=== PATIENT | male | born 1945 | race Caucasian/White ===

== ENCOUNTER 2021-03-31 19:59 | Inpatient (IN) | payer OTHER ==
[~2021-03-31] VITALS: Ht 160 cm; Wt 62.1 kg
[~2021-03-31 19:59] MED LIST: ALBU0.212 IH; CITA-107 PO; FLUT1DIS6 IH; LISI1TAB13 PO; SIMV-43 PO; TIOT185 IH; [UNRECOGNIZED DRUG - CODE] PO
[2021-03-31] MEDS ORDERED: AZITHROMYCIN 500 MG/NS 250 ML IV ONE (20:15)
[2021-03-31] MEDS ORDERED: ALBUTEROL SULFATE 5 MG/ML 20 ML NEB SOLN [BULK] NEB ONE (20:15)
[2021-03-31] MEDS ORDERED: IPRATROPIUM BROMIDE 0.5 MG/2.5 ML NEB SOLUTION NEB ONE (20:15)
[2021-03-31] MEDS ORDERED: CefTRIAXone 1 GM/DEXTROSE 50 ML IV ONE (20:15)
[2021-03-31] MEDS ORDERED: LEVE500S9 PO (20:24)
[2021-03-31 21:07] LABS: BASOPHILS % (AUTO) 0.6 % (0.0-2.0); EOSINOPHILS % (AUTO) 3.6 % (1.0-6.0); HEMATOCRIT 43.8 % (41-53); HEMOGLOBIN 14.5 g/dL (13.5-17.5); LYMPHOCYTES # (AUTO) 2.3 K/uL (1.0-4.8); LYMPHOCYTES % (AUTO) 21.6 % (22.0-44.0); MEAN CORPUSCULAR VOLUME 91 fL (80-100); MONOCYTES # (AUTO) 1.2 K/uL (0.1-1.0); MONOCYTES % (AUTO) 10.7 % (2.0-9.0); NEUTROPHILS # (AUTO) 6.8 K/uL (1.8-7.7); NEUTROPHILS % (AUTO) 63.5 % (40.0-70.0); PLATELET COUNT (AUTO) 202 K/uL (150-450); RED BLOOD CELL COUNT(AUTO) 4.82 MIL/uL (4.50-5.90); RED CELL DISTRIBUTION WIDTH 15.2 % (11.5-14.5)
[2021-03-31 21:19] LABS: ANION GAP -2 mmol/L (8-16); CARBON DIOXIDE 40 mmol/L (22-29); CHLORIDE 103 mmol/L (98-107); CREATININE 0.79 mg/dL (0.60-1.30); GLUCOSE,RANDOM 113 mg/dL (70-110); POTASSIUM 3.8 mmol/L (3.5-5.1); SODIUM SERUM 141 mmol/L (136-145); UREA NITROGEN, BLOOD 21 mg/dL (7-18)
[2021-03-31 21:21] LABS: GLOMERULAR FILTR. RATE CALC > 60 mL/min (>60)
[2021-03-31 21:22] LABS: ALANINE AMINOTRANSFERASE 70 U/L (12-78); ALBUMIN 3.5 g/dL (3.4-5.0); ALKALINE PHOSPHATASE 97 U/L (46-116); ASPARTATE AMINOTRANSFERASE 43 U/L (15-37); B-TYPE NATRIURETIC PEPTIDE 74 pg/mL (0-100); BILIRUBIN,TOTAL 0.6 mg/dL (0.1-1.0); LIPASE 63 U/L (73-393)
[2021-03-31 21:24] LABS: LACTIC ACID 1.3 mmol/L (0.4-2.0)
[2021-03-31 21:26] LABS: COVID AG,FIA SOURCE NASOPHARYNGEAL
[2021-03-31 21:36] LABS: ABG BASE EXCESS 3.9 mmol/L (-2.0-3.0); ABG CARBOXYHEMOGLOBIN 1.8 % (0.0-1.5); ABG HCO3 26.1 mmol/L (22.0-26.0); ABG METHEMOGLOBIN 0.3 % (0.0-1.5); ABG OXYGEN CONTENT 18.7 mL/dL (15.0-23.0); ABG OXYGEN SATURATION 95.8 % (95.0-98.0); ABG OXYHEMOGLOBIN 93.8 % (94.0-100.0); ABG PCO2 69 mmHg (35-45); ABG PH 7.268 (7.35-7.450); ABG TOTAL HEMOGLOBIN 14.1 G/dL (12.0-18.0); PO2, ARTERIAL BG 87.7 mmHg (75.0-83.0); SOURCE, BLOOD GAS ARTERIAL
[2021-03-31 21:37] LABS: O2 DEVICE,BLOOD GAS BIPAP (ROOM AIR); SITE, BLOOD GAS RT BRACHIAL; SPONTANEOUS VT, BG 457 ml
[2021-03-31 21:50] LABS: INFLUENZA TYPE A NEGATIVE FOR TYPE A (NEGATIVE); INFLUENZA TYPE B NEGATIVE FOR TYPE B (NEGATIVE)
[2021-03-31] MEDS ORDERED: IPRATROPIUM BROMIDE 0.5 MG/2.5 ML NEB SOLUTION NEB PRN (22:00)
[2021-03-31] MEDS ORDERED: MethylPREDNISolone SOD SUCC 125 MG/2 ML VIAL IVP ONE (22:00)
[2021-03-31] MEDS ORDERED: CloNIDine HCL 0.1 MG TABLET PO PRN (22:15)
[2021-03-31] MEDS ORDERED: AmLODIPine BESYLATE 5 MG TABLET PO SCH (22:15)
[2021-03-31] MEDS ORDERED: BENZONATATE 100 MG CAPSULE PO PRN (22:15)
[2021-03-31] MEDS: MONTELUKAST SODIUM 10 MG TABLET PO SCH (22:15)
[2021-03-31] MEDS ORDERED: LevETIRAcetam 1,500 MG in DEXTROSE 5%-WATER 100 ML IV ONE (22:30)
[2021-03-31] MEDS: MethylPREDNISolone SOD SUCC 125 MG/2 ML VIAL IVP SCH (22:36)
[2021-03-31 23:05] LABS: THYROID STIMULATING HORMONE 3.56 uIU/mL (0.36-3.74)
[2021-03-31] MEDS: HEPARIN SODIUM,PORCINE 5,000 UNITS/ML VIAL SQ SCH (23:15)
[2021-04-01 01:06] LABS: APPEARANCE,URINE CLEAR (CLEAR); BILIRUBIN,URINE NEGATIVE (NEGATIVE); GLUCOSE, URINE (UA) NEGATIVE (NEGATIVE); KETONES,URINE NEGATIVE (NEGATIVE); LEUKOCYTE ESTERASE ,URINE NEGATIVE (NEGATIVE); NITRATE,URINE NEGATIVE (NEGATIVE); OCCULT BLOOD,URINE MODERATE (NEGATIVE); PROTEIN,URINE SEE CONFIRM (NEGATIVE); UROBILINOGEN,URINE 0.2 mg/dL (<=1.0)
[2021-04-01] MEDS: MethylPREDNISolone SOD SUCC 125 MG/2 ML VIAL IVP SCH ×3 (05:33→17:57)
[2021-04-01 06:58] LABS: BACTERIA,URINE Moderate /HPF (None Seen); RBC,URINE None Seen /HPF (0-2); SQUAMOUS EPITHELIAL CELL,UR Few /LPF (None Seen); SULFOSALICYLIC ACID,URINE 3+ (Negative); WBC,URINE 0-2 /HPF (0-5)
[2021-04-01] MEDS: HEPARIN SODIUM,PORCINE 5,000 UNITS/ML VIAL SQ SCH ×2 (07:54→16:00)
[2021-04-01] MEDS: ASPIRIN 81 MG CHEWABLE TABLET PO SCH ×2 (07:55→08:05)
[2021-04-01] MEDS: DOCUSATE SODIUM 100 MG CAPSULE PO SCH ×3 (07:55→21:46)
[2021-04-01] MEDS: FAMOTIDINE 20 MG TABLET PO SCH ×3 (07:55→21:46)
[2021-04-01] MEDS ORDERED: SODIUM CHLORIDE 0.9% 250 ML IV ONE (09:34)
[2021-04-01] MEDS: HydrALAZINE HCL 20 MG/ML VIAL IVP PRN (10:21)
[2021-04-01] MEDS: LevETIRAcetam 1,500 MG in DEXTROSE 5%-WATER 100 ML IV SCH ×2 (10:21→21:46)
[2021-04-01] MEDS: DEXMEDETOMIDINE HCL 400 MCG in SODIUM CHLORIDE 0.9% 96 ML IV PRN ×2 (10:22→18:25)
[2021-04-01] MEDS: AZITHROMYCIN 500 MG/NS 250 ML IV SCH (11:16)
[2021-04-01 11:39] LABS: ABG BASE EXCESS 6.2 mmol/L (-2.0-3.0); ABG CARBOXYHEMOGLOBIN 1.6 % (0.0-1.5); ABG HCO3 27.5 mmol/L (22.0-26.0); ABG METHEMOGLOBIN 0.3 % (0.0-1.5); ABG OXYGEN CONTENT 18.5 mL/dL (15.0-23.0); ABG OXYGEN SATURATION 94.8 % (95.0-98.0); ABG PH 7.249 (7.35-7.450); ABG TOTAL HEMOGLOBIN 14.1 G/dL (12.0-18.0); PO2, ARTERIAL BG 82.6 mmHg (75.0-83.0); SOURCE, BLOOD GAS ARTERIAL; TEMPERATURE, FAHRENHEIT, BG 98.6 FAHREN (96.0-98.6)
[2021-04-01 11:41] LABS: ABG PCO2 78 mmHg (35-45); SITE, BLOOD GAS LFT RADIAL
[2021-04-01 11:42] LABS: O2 DEVICE,BLOOD GAS BIPAP (ROOM AIR); SPONTANEOUS VT, BG 349 ml
[2021-04-01 11:43] LABS: INSPIRATORY TIME, BG 1 SEC
[2021-04-01 12:00] VITALS: BP 153/77
[2021-04-01 13:41] LABS: ABG BASE EXCESS 2.3 mmol/L (-2.0-3.0); ABG CARBOXYHEMOGLOBIN 1.9 % (0.0-1.5); ABG HCO3 24.4 mmol/L (22.0-26.0); ABG METHEMOGLOBIN 0.3 % (0.0-1.5); ABG OXYGEN CONTENT 17.2 mL/dL (15.0-23.0); ABG TOTAL HEMOGLOBIN 13.9 G/dL (12.0-18.0); SOURCE, BLOOD GAS ARTERIAL; TEMPERATURE, FAHRENHEIT, BG 98.6 FAHREN (96.0-98.6)
[2021-04-01 13:44] LABS: ABG PCO2 77 mmHg (35-45); O2 DEVICE,BLOOD GAS BIPAP (ROOM AIR); SITE, BLOOD GAS LFT BRACHIAL
[2021-04-01 13:45] LABS: SPONTANEOUS VT, BG 404 ml
[2021-04-01 13:46] LABS: INSPIRATORY TIME, BG 1 SEC
[2021-04-01 16:00] VITALS: BP 104/53
[2021-04-01 16:17] LABS: ABG BASE EXCESS 6.8 mmol/L (-2.0-3.0); ABG CARBOXYHEMOGLOBIN 2.2 % (0.0-1.5); ABG HCO3 27.9 mmol/L (22.0-26.0); ABG METHEMOGLOBIN 0.2 % (0.0-1.5); ABG OXYGEN SATURATION 92.8 % (95.0-98.0); ABG OXYHEMOGLOBIN 90.6 % (94.0-100.0); ABG PH 7.254 (7.35-7.450); ABG TOTAL HEMOGLOBIN 14.1 G/dL (12.0-18.0); PO2, ARTERIAL BG 68.6 mmHg (75.0-83.0); SOURCE, BLOOD GAS ARTERIAL; TEMPERATURE, FAHRENHEIT, BG 96.8 FAHREN (96.0-98.6)
[2021-04-01 16:18] LABS: ABG PCO2 78 mmHg (35-45); O2 DEVICE,BLOOD GAS BIPAP (ROOM AIR); SITE, BLOOD GAS RT BRACHIAL
[2021-04-01 16:19] LABS: SPONTANEOUS VT, BG 301 ml
[2021-04-01] MEDS ORDERED: IPRA3AMP24 NEB (17:21)
[2021-04-01] MEDS ORDERED: FLUT12AE7 IH (17:21)
[2021-04-01] MEDS ORDERED: TAMS-13 PO (17:21)
[2021-04-01] MEDS ORDERED: LEVO112T4 PO (17:21)
[2021-04-01] MEDS ORDERED: TIOT4MIS2 IH (17:24)
[2021-04-01] MEDS ORDERED: BISACODYL 10 MG RECTAL RECTAL SUPPOSITORY PR PRN (17:30)
[2021-04-01 20:00] VITALS: BP 148/82
[2021-04-01 20:12] LABS: ABG BASE EXCESS 8.2 mmol/L (-2.0-3.0); ABG HCO3 29.4 mmol/L (22.0-26.0); ABG METHEMOGLOBIN 0.2 % (0.0-1.5); ABG OXYGEN CONTENT 18.4 mL/dL (15.0-23.0); ABG OXYGEN SATURATION 94.6 % (95.0-98.0); ABG OXYHEMOGLOBIN 92.5 % (94.0-100.0); ABG TOTAL HEMOGLOBIN 14.1 G/dL (12.0-18.0); PO2, ARTERIAL BG 78.9 mmHg (75.0-83.0); SOURCE, BLOOD GAS ARTERIAL; TEMPERATURE, FAHRENHEIT, BG 98.6 FAHREN (96.0-98.6)
[2021-04-01 20:13] LABS: ABG PCO2 74 mmHg (35-45); O2 DEVICE,BLOOD GAS BIPAP (ROOM AIR); SITE, BLOOD GAS LFT RADIAL; SPONTANEOUS VT, BG 222 ml; VENT MODE, BG BIPAP (ROOM AIR)
[2021-04-01 20:14] LABS: I:E RATIO, BG 1 sec.
[2021-04-01] MEDS ORDERED: 0.9% SODIUM CHLORIDE 5 ML NEB SOLUTION NEB ONE (20:43)
[2021-04-01] MEDS: BUDESONIDE 0.5 MG/2 ML NEB SOLUTION NEB SCH (20:51)
[2021-04-01] MEDS: MONTELUKAST SODIUM 10 MG TABLET PO SCH ×2 (21:00→21:47)
[2021-04-01] MEDS: AmLODIPine BESYLATE 10 MG TABLET PO SCH (21:46)
[2021-04-01] MEDS: TIOTROPIUM BROMIDE 18 MCG/INH HANDIHALER [5] IH SCH (21:46)
[2021-04-02] VITALS: BP 99/54
[2021-04-02] MEDS: HEPARIN SODIUM,PORCINE 5,000 UNITS/ML VIAL SQ SCH ×3 (02:13→17:37)
[2021-04-02] MEDS: MethylPREDNISolone SOD SUCC 125 MG/2 ML VIAL IVP SCH ×4 (02:13→17:37)
[2021-04-02 04:00] VITALS: BP 168/86
[2021-04-02 05:42] LABS: EOSINOPHILS % (AUTO) 0 % (1.0-6.0); LYMPHOCYTES # (AUTO) 0.3 K/uL (1.0-4.8); LYMPHOCYTES % (AUTO) 2.7 % (22.0-44.0); MEAN CORPUSCULAR HEMOGLOBIN 29.8 pg (26.0-34.0); MEAN CORPUSCULAR HGB CONC 32.5 G/dL (31.0-37.0); MEAN CORPUSCULAR VOLUME 92 fL (80-100); MONOCYTES # (AUTO) 0.5 K/uL (0.1-1.0); MONOCYTES % (AUTO) 4.4 % (2.0-9.0); NEUTROPHILS # (AUTO) 10.9 K/uL (1.8-7.7); PLATELET COUNT (AUTO) 168 K/uL (150-450); RED BLOOD CELL COUNT(AUTO) 4.68 MIL/uL (4.50-5.90); RED CELL DISTRIBUTION WIDTH 15.3 % (11.5-14.5)
[2021-04-02 05:45] LABS: ANION GAP -1 mmol/L (8-16); CALCIUM, TOTAL 9.1 mg/dL (8.8-10.5); CHLORIDE 100 mmol/L (98-107); CREATININE 0.65 mg/dL (0.60-1.30); GLUCOSE,RANDOM 109 mg/dL (70-110); NEUTROPHILS % (AUTO) 92.9 % (40.0-70.0); POTASSIUM 4.5 mmol/L (3.5-5.1); SODIUM SERUM 140 mmol/L (136-145); UREA NITROGEN, BLOOD 30 mg/dL (7-18)
[2021-04-02] MEDS: LEVOTHYROXINE SODIUM 100 MCG TABLET PO SCH (06:23)
[2021-04-02 06:45] LABS: CARBON DIOXIDE 41 mmol/L (22-29); GLOMERULAR FILTR. RATE CALC > 60 mL/min (>60)
[2021-04-02 08:00] VITALS: BP 148/60
[2021-04-02] MEDS: BUDESONIDE 0.5 MG/2 ML NEB SOLUTION NEB SCH ×2 (08:05→20:32)
[2021-04-02] MEDS: LevETIRAcetam 1,500 MG in DEXTROSE 5%-WATER 100 ML IV SCH ×2 (08:34→20:31)
[2021-04-02] MEDS: DEXMEDETOMIDINE HCL 400 MCG in SODIUM CHLORIDE 0.9% 96 ML IV PRN (08:37)
[2021-04-02] MEDS: DOCUSATE SODIUM 100 MG CAPSULE PO SCH ×2 (09:00→20:32)
[2021-04-02] MEDS: TIOTROPIUM BROMIDE 18 MCG/INH HANDIHALER [5] IH SCH (09:00)
[2021-04-02] MEDS: ASPIRIN 81 MG CHEWABLE TABLET PO SCH (09:00)
[2021-04-02] MEDS: FAMOTIDINE 20 MG TABLET PO SCH ×2 (09:00→20:32)
[2021-04-02] MEDS: AZITHROMYCIN 500 MG/NS 250 ML IV SCH (10:46)
[2021-04-02 12:00] VITALS: BP 159/70
[2021-04-02] MEDS ORDERED: ETOMIDATE 2 MG/ML 10 ML VIAL ONE (15:33)
[2021-04-02] MEDS ORDERED: ROCURONIUM BROMIDE 10 MG/ML 5 ML VIAL ONE (15:35)
[2021-04-02] MEDS ORDERED: PROPOFOL 1000 MG/ISO-OSM 100 ML IV PRN (15:45)
[2021-04-02] MEDS ORDERED: ETOMIDATE 2 MG/ML 10 ML VIAL IVP ONE (15:45)
[2021-04-02] MEDS ORDERED: ROCURONIUM BROMIDE 10 MG/ML 5 ML VIAL IVP ONE (15:45)
[2021-04-02 16:00] VITALS: BP 173/76
[2021-04-02] MEDS: FentaNYL CIT 1000MCG/0.9% NACL 100 ML IV PRN (16:15)
[2021-04-02 17:11] LABS: ABG BASE EXCESS 11.4 mmol/L (-2.0-3.0); ABG CARBOXYHEMOGLOBIN 1.3 % (0.0-1.5); ABG HCO3 32.5 mmol/L (22.0-26.0); ABG METHEMOGLOBIN 0.3 % (0.0-1.5); ABG OXYGEN CONTENT 19.8 mL/dL (15.0-23.0); ABG OXYGEN SATURATION 99.6 % (95.0-98.0); ABG PCO2 70 mmHg (35-45); ABG PH 7.342 (7.35-7.450); ABG TOTAL HEMOGLOBIN 13.4 G/dL (12.0-18.0); PO2, ARTERIAL BG 475.3 mmHg (75.0-83.0); SITE, BLOOD GAS LFT RADIAL; SOURCE, BLOOD GAS ARTERIAL; TEMPERATURE, FAHRENHEIT, BG 96.7 FAHREN (96.0-98.6)
[2021-04-02 17:12] LABS: O2 DEVICE,BLOOD GAS VENTILATOR (ROOM AIR); PEEP,BG 5 cm H2O; SPONTANEOUS VT, BG 323 ml; VENT MODE, BG Press. Control Vent (ROOM AIR)
[2021-04-02 20:00] VITALS: BP 176/67
[2021-04-02] MEDS: MONTELUKAST SODIUM 10 MG TABLET PO SCH (20:32)
[2021-04-02] MEDS: AmLODIPine BESYLATE 10 MG TABLET PO SCH (20:32)
[2021-04-02] MEDS: ETHYL ALCOHOL 62% ANTISEPTIC NASAL INHALANT 0.6 ML AMPUL NASAL SCH (22:00)
[2021-04-03] VITALS (9 sets, daily range): BP systolic 73–166; BP diastolic 41–166
[2021-04-03] MEDS: MethylPREDNISolone SOD SUCC 125 MG/2 ML VIAL IVP SCH ×6 (00:17→23:10)
[2021-04-03] MEDS: HEPARIN SODIUM,PORCINE 5,000 UNITS/ML VIAL SQ SCH ×4 (00:18→23:11)
[2021-04-03] MEDS: LEVOTHYROXINE SODIUM 100 MCG TABLET PO SCH (06:01)
[2021-04-03] MEDS: TIOTROPIUM BROMIDE 18 MCG/INH HANDIHALER [5] IH SCH (09:00)
[2021-04-03] MEDS: DOCUSATE SODIUM 100 MG CAPSULE PO SCH (09:01)
[2021-04-03] MEDS: LevETIRAcetam 1,500 MG in DEXTROSE 5%-WATER 100 ML IV SCH ×2 (09:01→20:52)
[2021-04-03] MEDS: ASPIRIN 81 MG CHEWABLE TABLET PO SCH (09:02)
[2021-04-03] MEDS: FAMOTIDINE 20 MG TABLET PO SCH ×2 (09:02→20:50)
[2021-04-03] MEDS: ETHYL ALCOHOL 62% ANTISEPTIC NASAL INHALANT 0.6 ML AMPUL NASAL SCH ×2 (09:02→20:50)
[2021-04-03] MEDS: BUDESONIDE 0.5 MG/2 ML NEB SOLUTION NEB SCH ×2 (09:32→21:44)
[2021-04-03 10:01] LABS: ABG BASE EXCESS 9.2 mmol/L (-2.0-3.0); ABG CARBOXYHEMOGLOBIN 1.5 % (0.0-1.5); ABG HCO3 31.1 mmol/L (22.0-26.0); ABG METHEMOGLOBIN 0.3 % (0.0-1.5); ABG OXYGEN CONTENT 18.3 mL/dL (15.0-23.0); ABG OXYGEN SATURATION 96.7 % (95.0-98.0); ABG PCO2 60 mmHg (35-45); ABG PH 7.379 (7.35-7.450); ABG TOTAL HEMOGLOBIN 13.6 G/dL (12.0-18.0); O2 DEVICE,BLOOD GAS VENTILATOR (ROOM AIR); PEEP,BG 5 cm H2O; SITE, BLOOD GAS RT BRACHIAL; SOURCE, BLOOD GAS ARTERIAL; TEMPERATURE, FAHRENHEIT, BG 98.6 FAHREN (96.0-98.6); VENT MODE, BG Press. Control Vent (ROOM AIR)
[2021-04-03] MEDS: AZITHROMYCIN 500 MG/NS 250 ML IV SCH (10:34)
[2021-04-03] MEDS ORDERED: DOPamine 400MG/D5W[STANDARD] 250 ML IV PRN (13:45)
[2021-04-03] MEDS: SODIUM CHLORIDE 0.9% 1,000 ML IV SCH ×2 (13:50→13:56)
[2021-04-03 14:39] LABS: BASOPHILS % (AUTO) 0.2 % (0.0-2.0); EOSINOPHILS % (AUTO) 0 % (1.0-6.0); HEMATOCRIT 39.9 % (41-53); LYMPHOCYTES # (AUTO) 0.6 K/uL (1.0-4.8); LYMPHOCYTES % (AUTO) 5.3 % (22.0-44.0); MEAN CORPUSCULAR HEMOGLOBIN 29.3 pg (26.0-34.0); MEAN CORPUSCULAR HGB CONC 32.5 G/dL (31.0-37.0); MEAN CORPUSCULAR VOLUME 90 fL (80-100); MONOCYTES # (AUTO) 0.5 K/uL (0.1-1.0); MONOCYTES % (AUTO) 4.4 % (2.0-9.0); NEUTROPHILS # (AUTO) 11.1 K/uL (1.8-7.7); PLATELET COUNT (AUTO) 162 K/uL (150-450); RED BLOOD CELL COUNT(AUTO) 4.44 MIL/uL (4.50-5.90); RED CELL DISTRIBUTION WIDTH 14.9 % (11.5-14.5)
[2021-04-03 14:40] LABS: NEUTROPHILS % (AUTO) 90.1 % (40.0-70.0)
[2021-04-03 14:52] LABS: ANION GAP 2 mmol/L (8-16); CALCIUM, TOTAL 8.7 mg/dL (8.8-10.5); CARBON DIOXIDE 39 mmol/L (22-29); CHLORIDE 101 mmol/L (98-107); CREATININE 0.76 mg/dL (0.60-1.30); GLUCOSE,RANDOM 116 mg/dL (70-110); POTASSIUM 4.2 mmol/L (3.5-5.1); SODIUM SERUM 142 mmol/L (136-145); UREA NITROGEN, BLOOD 38 mg/dL (7-18)
[2021-04-03 14:53] LABS: GLOMERULAR FILTR. RATE CALC > 60 mL/min (>60)
[2021-04-03 14:58] LABS: ALANINE AMINOTRANSFERASE 36 U/L (12-78); ALBUMIN 2.8 g/dL (3.4-5.0); ALKALINE PHOSPHATASE 60 U/L (46-116); ASPARTATE AMINOTRANSFERASE 27 U/L (15-37); BILIRUBIN,TOTAL 0.4 mg/dL (0.1-1.0); PHOSPHORUS 1.8 mg/dL (2.5-4.9); TOTAL PROTEIN, SERUM 6.4 g/dL (6.4-8.2)
[2021-04-03] MEDS: DEXMEDETOMIDINE HCL 400 MCG in SODIUM CHLORIDE 0.9% 96 ML IV PRN (18:56)
[2021-04-03] MEDS: FentaNYL CIT 1000MCG/0.9% NACL 100 ML IV PRN (19:43)
[2021-04-03] MEDS: MONTELUKAST SODIUM 10 MG TABLET PO SCH (20:50)
[2021-04-03] MEDS: SENNA/DOCUSATE SODIUM 8.6-50 MG TABLET PO SCH (20:50)
[2021-04-03] MEDS: AmLODIPine BESYLATE 10 MG TABLET PO SCH (20:51)
[2021-04-04] VITALS (12 sets, daily range): BP systolic 103–163; BP diastolic 53–76
[2021-04-04] MEDS: DEXMEDETOMIDINE HCL 400 MCG in SODIUM CHLORIDE 0.9% 96 ML IV PRN ×2 (03:09→11:39)
[2021-04-04] MEDS ORDERED: ATROPINE SULFATE 0.1 MG/ML 10 ML SYRINGE IVP ONE ×3 (03:30→03:45)
[2021-04-04] MEDS: MethylPREDNISolone SOD SUCC 125 MG/2 ML VIAL IVP SCH ×3 (05:44→17:49)
[2021-04-04] MEDS: LEVOTHYROXINE SODIUM 100 MCG TABLET PO SCH (05:44)
[2021-04-04 06:04] LABS: BASOPHILS % (AUTO) 0.1 % (0.0-2.0); EOSINOPHILS % (AUTO) 0 % (1.0-6.0); HEMATOCRIT 40.6 % (41-53); HEMOGLOBIN 13.5 g/dL (13.5-17.5); LYMPHOCYTES # (AUTO) 0.5 K/uL (1.0-4.8); LYMPHOCYTES % (AUTO) 6.2 % (22.0-44.0); MEAN CORPUSCULAR HEMOGLOBIN 29.5 pg (26.0-34.0); MEAN CORPUSCULAR HGB CONC 33.3 G/dL (31.0-37.0); MEAN CORPUSCULAR VOLUME 89 fL (80-100); MONOCYTES # (AUTO) 0.4 K/uL (0.1-1.0); NEUTROPHILS # (AUTO) 7.4 K/uL (1.8-7.7); PLATELET COUNT (AUTO) 153 K/uL (150-450); RED BLOOD CELL COUNT(AUTO) 4.57 MIL/uL (4.50-5.90); RED CELL DISTRIBUTION WIDTH 15.5 % (11.5-14.5)
[2021-04-04 06:17] LABS: ALANINE AMINOTRANSFERASE 33 U/L (12-78); ALBUMIN 2.6 g/dL (3.4-5.0); ALKALINE PHOSPHATASE 57 U/L (46-116); ANION GAP 2 mmol/L (8-16); ASPARTATE AMINOTRANSFERASE 20 U/L (15-37); BILIRUBIN,TOTAL 0.4 mg/dL (0.1-1.0); CALCIUM, TOTAL 8.1 mg/dL (8.8-10.5); CARBON DIOXIDE 37 mmol/L (22-29); CHLORIDE 105 mmol/L (98-107); GLUCOSE,RANDOM 163 mg/dL (70-110); POTASSIUM 4.3 mmol/L (3.5-5.1); SODIUM SERUM 144 mmol/L (136-145); TOTAL PROTEIN, SERUM 6.4 g/dL (6.4-8.2); UREA NITROGEN, BLOOD 36 mg/dL (7-18)
[2021-04-04 06:39] LABS: GLOMERULAR FILTR. RATE CALC > 60 mL/min (>60)
[2021-04-04 06:53] LABS: NEUTROPHILS % (AUTO) 88.7 % (40.0-70.0)
[2021-04-04] MEDS: ASPIRIN 81 MG CHEWABLE TABLET PO SCH (08:52)
[2021-04-04] MEDS: SENNA/DOCUSATE SODIUM 8.6-50 MG TABLET PO SCH ×2 (08:52→20:54)
[2021-04-04] MEDS: HEPARIN SODIUM,PORCINE 5,000 UNITS/ML VIAL SQ SCH ×2 (08:52→16:19)
[2021-04-04] MEDS: ETHYL ALCOHOL 62% ANTISEPTIC NASAL INHALANT 0.6 ML AMPUL NASAL SCH ×2 (08:52→20:54)
[2021-04-04] MEDS: FAMOTIDINE 20 MG TABLET PO SCH ×2 (08:53→20:54)
[2021-04-04] MEDS: TIOTROPIUM BROMIDE 18 MCG/INH HANDIHALER [5] IH SCH (09:00)
[2021-04-04] MEDS: LevETIRAcetam 1,500 MG in DEXTROSE 5%-WATER 100 ML IV SCH ×2 (09:13→20:53)
[2021-04-04] MEDS: BUDESONIDE 0.5 MG/2 ML NEB SOLUTION NEB SCH ×2 (09:45→19:09)
[2021-04-04 10:21] LABS: ABG BASE EXCESS 7.7 mmol/L (-2.0-3.0); ABG CARBOXYHEMOGLOBIN 1.1 % (0.0-1.5); ABG HCO3 30.3 mmol/L (22.0-26.0); ABG METHEMOGLOBIN 0.3 % (0.0-1.5); ABG OXYGEN CONTENT 18.2 mL/dL (15.0-23.0); ABG OXYGEN SATURATION 98.5 % (95.0-98.0); ABG OXYHEMOGLOBIN 97.1 % (94.0-100.0); ABG PCO2 50 mmHg (35-45); ABG PH 7.425 (7.35-7.450); ABG TOTAL HEMOGLOBIN 13.2 G/dL (12.0-18.0); PO2, ARTERIAL BG 134.2 mmHg (75.0-83.0); SOURCE, BLOOD GAS ARTERIAL; TEMPERATURE, FAHRENHEIT, BG 97.7 FAHREN (96.0-98.6)
[2021-04-04 10:22] LABS: O2 DEVICE,BLOOD GAS VENTILATOR (ROOM AIR); SITE, BLOOD GAS LFT RADIAL; VENT MODE, BG Press. Control Vent (ROOM AIR)
[2021-04-04] MEDS: AZITHROMYCIN 500 MG/NS 250 ML IV SCH (10:22)
[2021-04-04 10:23] LABS: INSPIRATORY TIME, BG 0.9 SEC; PEEP,BG 5 cm H2O; SPONTANEOUS VT, BG 745 ml
[2021-04-04] MEDS: CefTRIAXone SODIUM 2 GM in DEXTROSE 5%-WATER 50 ML IV SCH (11:53)
[2021-04-04] MEDS: SODIUM CHLORIDE 0.9% 1,000 ML IV SCH (16:19)
[2021-04-04] MEDS: FentaNYL CIT 1000MCG/0.9% NACL 100 ML IV PRN (20:02)
[2021-04-04] MEDS: LORazepam 2 MG/ML VIAL IVP PRN (20:08)
[2021-04-04] MEDS: MONTELUKAST SODIUM 10 MG TABLET PO SCH (20:54)
[2021-04-04] MEDS: AmLODIPine BESYLATE 10 MG TABLET PO SCH (20:54)
[2021-04-05] VITALS (11 sets, daily range): BP systolic 107–160; BP diastolic 48–79
[2021-04-05] MEDS: MethylPREDNISolone SOD SUCC 125 MG/2 ML VIAL IVP SCH ×4 (00:21→18:03)
[2021-04-05] MEDS: HEPARIN SODIUM,PORCINE 5,000 UNITS/ML VIAL SQ SCH ×3 (00:22→16:40)
[2021-04-05] MEDS: LORazepam 2 MG/ML VIAL IVP PRN ×3 (01:27→20:00)
[2021-04-05 05:35] LABS: EOSINOPHILS % (AUTO) 0 % (1.0-6.0); HEMOGLOBIN 12.2 g/dL (13.5-17.5); LYMPHOCYTES # (AUTO) 0.9 K/uL (1.0-4.8); LYMPHOCYTES % (AUTO) 7.2 % (22.0-44.0); MEAN CORPUSCULAR HEMOGLOBIN 29.2 pg (26.0-34.0); MEAN CORPUSCULAR HGB CONC 32.9 G/dL (31.0-37.0); MEAN CORPUSCULAR VOLUME 89 fL (80-100); MONOCYTES # (AUTO) 0.6 K/uL (0.1-1.0); NEUTROPHILS # (AUTO) 10.5 K/uL (1.8-7.7); PLATELET COUNT (AUTO) 136 K/uL (150-450); RED BLOOD CELL COUNT(AUTO) 4.18 MIL/uL (4.50-5.90); RED CELL DISTRIBUTION WIDTH 15.3 % (11.5-14.5)
[2021-04-05 05:43] LABS: ALANINE AMINOTRANSFERASE 24 U/L (12-78); ALBUMIN 2.5 g/dL (3.4-5.0); ALKALINE PHOSPHATASE 56 U/L (46-116); ANION GAP 3 mmol/L (8-16); ASPARTATE AMINOTRANSFERASE 17 U/L (15-37); BILIRUBIN,TOTAL 0.2 mg/dL (0.1-1.0); CALCIUM, TOTAL 8.1 mg/dL (8.8-10.5); CARBON DIOXIDE 36 mmol/L (22-29); CHLORIDE 108 mmol/L (98-107); GLUCOSE,RANDOM 160 mg/dL (70-110); SODIUM SERUM 147 mmol/L (136-145); UREA NITROGEN, BLOOD 43 mg/dL (7-18)
[2021-04-05] MEDS: SODIUM CHLORIDE 0.9% 1,000 ML IV SCH ×2 (05:47→19:59)
[2021-04-05] MEDS: LEVOTHYROXINE SODIUM 100 MCG TABLET PO SCH (05:48)
[2021-04-05 06:09] LABS: NEUTROPHILS % (AUTO) 87.8 % (40.0-70.0)
[2021-04-05 06:16] LABS: GLOMERULAR FILTR. RATE CALC > 60 mL/min (>60)
[2021-04-05] MEDS: BUDESONIDE 0.5 MG/2 ML NEB SOLUTION NEB SCH ×2 (08:16→19:45)
[2021-04-05] MEDS: ETHYL ALCOHOL 62% ANTISEPTIC NASAL INHALANT 0.6 ML AMPUL NASAL SCH ×2 (08:34→20:00)
[2021-04-05] MEDS: LevETIRAcetam 1,500 MG in DEXTROSE 5%-WATER 100 ML IV SCH ×2 (08:34→21:03)
[2021-04-05] MEDS: FAMOTIDINE 20 MG TABLET PO SCH ×2 (08:35→20:00)
[2021-04-05] MEDS: TAMSULOSIN HCL 0.4 MG CAPSULE PO SCH (08:35)
[2021-04-05] MEDS: ASPIRIN 81 MG CHEWABLE TABLET PO SCH (08:35)
[2021-04-05] MEDS: TIOTROPIUM BROMIDE 18 MCG/INH HANDIHALER [5] IH SCH (09:00)
[2021-04-05] MEDS: SENNA/DOCUSATE SODIUM 8.6-50 MG TABLET PO SCH ×2 (09:24→20:00)
[2021-04-05] MEDS: FentaNYL CIT 1000MCG/0.9% NACL 100 ML IV PRN (09:30)
[2021-04-05 10:28] LABS: ABG BASE EXCESS 4.1 mmol/L (-2.0-3.0); ABG HCO3 26.9 mmol/L (22.0-26.0); ABG METHEMOGLOBIN 0.3 % (0.0-1.5); ABG OXYGEN CONTENT 17.5 mL/dL (15.0-23.0); ABG OXYGEN SATURATION 98.2 % (95.0-98.0); ABG OXYHEMOGLOBIN 96.9 % (94.0-100.0); ABG PCO2 61 mmHg (35-45); ABG PH 7.313 (7.35-7.450); ABG TOTAL HEMOGLOBIN 12.7 G/dL (12.0-18.0); PO2, ARTERIAL BG 129.4 mmHg (75.0-83.0); SOURCE, BLOOD GAS ARTERIAL; TEMPERATURE, FAHRENHEIT, BG 98.6 FAHREN (96.0-98.6)
[2021-04-05] MEDS: AZITHROMYCIN 500 MG/NS 250 ML IV SCH (10:29)
[2021-04-05 10:33] LABS: ABG A-A DIFF O2 49.1 mmHg (10-20.0); O2 DEVICE,BLOOD GAS VENTILATOR (ROOM AIR); PEEP,BG 5 cm H2O; SITE, BLOOD GAS LFT RADIAL; VENT MODE, BG Press. Control Vent (ROOM AIR); VT, ABG 300 ml
[2021-04-05 10:35] LABS: INSPIRATORY TIME, BG 0.8 SEC
[2021-04-05 12:06] LABS: PHOSPHORUS 2.3 mg/dL (2.5-4.9)
[2021-04-05] MEDS: CefTRIAXone SODIUM 2 GM in DEXTROSE 5%-WATER 50 ML IV SCH (12:15)
[2021-04-05] MEDS: ALBUTEROL SULFATE 2.5 MG/0.5 ML NEB SOLUTION NEB PRN ×2 (17:39→19:45)
[2021-04-05] MEDS: IPRATROPIUM BROMIDE 0.5 MG/2.5 ML NEB SOLUTION NEB PRN ×2 (17:39→19:45)
[2021-04-05] MEDS: AmLODIPine BESYLATE 10 MG TABLET PO SCH (20:00)
[2021-04-05] MEDS: MONTELUKAST SODIUM 10 MG TABLET PO SCH (20:00)
[2021-04-06] VITALS: BP 117/52
[2021-04-06] MEDS: HEPARIN SODIUM,PORCINE 5,000 UNITS/ML VIAL SQ SCH ×3 (01:12→15:16)
[2021-04-06] MEDS: MethylPREDNISolone SOD SUCC 125 MG/2 ML VIAL IVP SCH ×4 (01:12→18:51)
[2021-04-06] MEDS: LORazepam 2 MG/ML VIAL IVP PRN (01:48)
[2021-04-06 04:00] VITALS: BP 139/68
[2021-04-06] MEDS: LEVOTHYROXINE SODIUM 100 MCG TABLET PO SCH (06:19)
[2021-04-06 06:27] LABS: BASOPHILS % (AUTO) 0.1 % (0.0-2.0); EOSINOPHILS % (AUTO) 0 % (1.0-6.0); HEMATOCRIT 35.3 % (41-53); HEMOGLOBIN 11.7 g/dL (13.5-17.5); LYMPHOCYTES # (AUTO) 0.7 K/uL (1.0-4.8); LYMPHOCYTES % (AUTO) 6.1 % (22.0-44.0); MEAN CORPUSCULAR HEMOGLOBIN 29.5 pg (26.0-34.0); MEAN CORPUSCULAR HGB CONC 33.2 G/dL (31.0-37.0); MEAN CORPUSCULAR VOLUME 89 fL (80-100); MONOCYTES # (AUTO) 0.6 K/uL (0.1-1.0); MONOCYTES % (AUTO) 4.9 % (2.0-9.0); NEUTROPHILS # (AUTO) 10.5 K/uL (1.8-7.7); PLATELET COUNT (AUTO) 127 K/uL (150-450); RED BLOOD CELL COUNT(AUTO) 3.97 MIL/uL (4.50-5.90); RED CELL DISTRIBUTION WIDTH 15.5 % (11.5-14.5)
[2021-04-06 07:03] LABS: ALANINE AMINOTRANSFERASE 39 U/L (12-78); ALBUMIN 2.5 g/dL (3.4-5.0); ALKALINE PHOSPHATASE 60 U/L (46-116); ASPARTATE AMINOTRANSFERASE 25 U/L (15-37); BILIRUBIN,TOTAL 0.2 mg/dL (0.1-1.0); CALCIUM, TOTAL 8.2 mg/dL (8.8-10.5); CARBON DIOXIDE 36 mmol/L (22-29); CREATININE 0.65 mg/dL (0.60-1.30); GLUCOSE,RANDOM 231 mg/dL (70-110); POTASSIUM 3.9 mmol/L (3.5-5.1); SODIUM SERUM 146 mmol/L (136-145); TOTAL PROTEIN, SERUM 6.1 g/dL (6.4-8.2); UREA NITROGEN, BLOOD 29 mg/dL (7-18)
[2021-04-06 07:07] LABS: ANION GAP 1 mmol/L (8-16); CHLORIDE 109 mmol/L (98-107); GLOMERULAR FILTR. RATE CALC > 60 mL/min (>60)
[2021-04-06 07:20] LABS: NEUTROPHILS % (AUTO) 88.9 % (40.0-70.0)
[2021-04-06 08:00] VITALS: BP 155/71
[2021-04-06] MEDS: SODIUM CHLORIDE 0.9% 1,000 ML IV SCH ×2 (08:16→21:45)
[2021-04-06] MEDS: LevETIRAcetam 1,500 MG in DEXTROSE 5%-WATER 100 ML IV SCH ×2 (08:16→21:47)
[2021-04-06] MEDS: SENNA/DOCUSATE SODIUM 8.6-50 MG TABLET PO SCH ×2 (08:17→21:00)
[2021-04-06] MEDS: ETHYL ALCOHOL 62% ANTISEPTIC NASAL INHALANT 0.6 ML AMPUL NASAL SCH ×2 (08:17→21:47)
[2021-04-06] MEDS: FAMOTIDINE 20 MG TABLET PO SCH ×2 (08:17→21:00)
[2021-04-06] MEDS: ASPIRIN 81 MG CHEWABLE TABLET PO SCH (08:17)
[2021-04-06] MEDS: TIOTROPIUM BROMIDE 18 MCG/INH HANDIHALER [5] IH SCH (09:00)
[2021-04-06] MEDS: TAMSULOSIN HCL 0.4 MG CAPSULE PO SCH (09:00)
[2021-04-06] MEDS: BUDESONIDE 0.5 MG/2 ML NEB SOLUTION NEB SCH ×2 (09:19→20:18)
[2021-04-06] MEDS: AZITHROMYCIN 500 MG/NS 250 ML IV SCH (10:29)
[2021-04-06] MEDS: CefTRIAXone SODIUM 2 GM in DEXTROSE 5%-WATER 50 ML IV SCH (11:52)
[2021-04-06 11:59] LABS: ABG CARBOXYHEMOGLOBIN 1.1 % (0.0-1.5); ABG METHEMOGLOBIN 0.3 % (0.0-1.5); ABG OXYGEN SATURATION 97.7 % (95.0-98.0); ABG OXYHEMOGLOBIN 96.3 % (94.0-100.0); ABG PCO2 65 mmHg (35-45); ABG PH 7.336 (7.35-7.450); ABG TOTAL HEMOGLOBIN 12.4 G/dL (12.0-18.0); PO2, ARTERIAL BG 113.1 mmHg (75.0-83.0); SITE, BLOOD GAS LFT RADIAL; SOURCE, BLOOD GAS ARTERIAL; TEMPERATURE, FAHRENHEIT, BG 98.7 FAHREN (96.0-98.6)
[2021-04-06 12:00] VITALS: BP 150/67
[2021-04-06 12:00] LABS: O2 DEVICE,BLOOD GAS VENTILATOR (ROOM AIR); PEEP,BG 5 cm H2O; PRESSURE SUPPORT, BG 5 cm H2O; SPONTANEOUS VT, BG 362 ml; VENT MODE, BG Press. Support Vent. (ROOM AIR)
[2021-04-06] MEDS: HydrALAZINE HCL 20 MG/ML VIAL IVP PRN (15:17)
[2021-04-06 16:00] VITALS: BP 163/87
[2021-04-06 20:00] VITALS: BP 144/72
[2021-04-06] MEDS: AmLODIPine BESYLATE 10 MG TABLET PO SCH (21:00)
[2021-04-06] MEDS: MONTELUKAST SODIUM 10 MG TABLET PO SCH (21:00)
[2021-04-07] VITALS: BP 178/82
[2021-04-07] MEDS: HEPARIN SODIUM,PORCINE 5,000 UNITS/ML VIAL SQ SCH ×3 (00:01→17:33)
[2021-04-07] MEDS: MethylPREDNISolone SOD SUCC 125 MG/2 ML VIAL IVP SCH ×4 (00:01→17:33)
[2021-04-07] MEDS: HydrALAZINE HCL 20 MG/ML VIAL IVP PRN ×2 (00:02→21:16)
[2021-04-07 04:00] VITALS: BP 150/70
[2021-04-07 05:20] LABS: BASOPHILS % (AUTO) 0.2 % (0.0-2.0); EOSINOPHILS % (AUTO) 0 % (1.0-6.0); HEMOGLOBIN 12.1 g/dL (13.5-17.5); LYMPHOCYTES # (AUTO) 0.5 K/uL (1.0-4.8); LYMPHOCYTES % (AUTO) 3.7 % (22.0-44.0); MEAN CORPUSCULAR HEMOGLOBIN 29.8 pg (26.0-34.0); MEAN CORPUSCULAR HGB CONC 33.5 G/dL (31.0-37.0); MEAN CORPUSCULAR VOLUME 89 fL (80-100); MONOCYTES # (AUTO) 0.5 K/uL (0.1-1.0); NEUTROPHILS # (AUTO) 12.3 K/uL (1.8-7.7); PLATELET COUNT (AUTO) 121 K/uL (150-450); RED BLOOD CELL COUNT(AUTO) 4.05 MIL/uL (4.50-5.90); RED CELL DISTRIBUTION WIDTH 15.5 % (11.5-14.5)
[2021-04-07 05:21] LABS: NEUTROPHILS % (AUTO) 92.1 % (40.0-70.0)
[2021-04-07 05:57] LABS: ALANINE AMINOTRANSFERASE 118 U/L (12-78); ALBUMIN 2.5 g/dL (3.4-5.0); ALKALINE PHOSPHATASE 56 U/L (46-116); ANION GAP 1 mmol/L (8-16); ASPARTATE AMINOTRANSFERASE 72 U/L (15-37); BILIRUBIN,TOTAL 0.5 mg/dL (0.1-1.0); CALCIUM, TOTAL 8.4 mg/dL (8.8-10.5); CARBON DIOXIDE 39 mmol/L (22-29); CHLORIDE 107 mmol/L (98-107); CREATININE 0.61 mg/dL (0.60-1.30); GLUCOSE,RANDOM 147 mg/dL (70-110); POTASSIUM 4.1 mmol/L (3.5-5.1); SODIUM SERUM 147 mmol/L (136-145); UREA NITROGEN, BLOOD 22 mg/dL (7-18)
[2021-04-07 05:58] LABS: GLOMERULAR FILTR. RATE CALC > 60 mL/min (>60)
[2021-04-07] MEDS: LEVOTHYROXINE SODIUM 100 MCG TABLET PO SCH (06:30)
[2021-04-07] MEDS: ALBUTEROL SULFATE 2.5 MG/0.5 ML NEB SOLUTION NEB PRN ×2 (07:57→21:15)
[2021-04-07] MEDS: IPRATROPIUM BROMIDE 0.5 MG/2.5 ML NEB SOLUTION NEB PRN (07:57)
[2021-04-07] MEDS: BUDESONIDE 0.5 MG/2 ML NEB SOLUTION NEB SCH ×2 (07:58→21:15)
[2021-04-07 08:00] VITALS: BP 168/66
[2021-04-07] MEDS: SENNA/DOCUSATE SODIUM 8.6-50 MG TABLET PO SCH ×2 (08:29→21:00)
[2021-04-07] MEDS: ASPIRIN 81 MG CHEWABLE TABLET PO SCH (08:29)
[2021-04-07] MEDS: TAMSULOSIN HCL 0.4 MG CAPSULE PO SCH (08:29)
[2021-04-07] MEDS: FAMOTIDINE 20 MG TABLET PO SCH ×2 (08:29→21:00)
[2021-04-07] MEDS: TIOTROPIUM BROMIDE 18 MCG/INH HANDIHALER [5] IH SCH (08:30)
[2021-04-07] MEDS: LevETIRAcetam 1,500 MG in DEXTROSE 5%-WATER 100 ML IV SCH ×2 (08:34→21:09)
[2021-04-07] MEDS: ETHYL ALCOHOL 62% ANTISEPTIC NASAL INHALANT 0.6 ML AMPUL NASAL SCH ×2 (08:34→21:09)
[2021-04-07] MEDS: AZITHROMYCIN 500 MG/NS 250 ML IV SCH (09:35)
[2021-04-07] MEDS: CefTRIAXone SODIUM 2 GM in DEXTROSE 5%-WATER 50 ML IV SCH (11:29)
[2021-04-07 12:00] VITALS: BP 143/76
[2021-04-07 16:00] VITALS: BP 154/74
[2021-04-07 20:00] VITALS: BP 164/74
[2021-04-07] MEDS: AmLODIPine BESYLATE 10 MG TABLET PO SCH (21:00)
[2021-04-07] MEDS: MONTELUKAST SODIUM 10 MG TABLET PO SCH (21:00)
[2021-04-07] MEDS: ACETYLCYSTEINE 20% 200 MG/ML 4 ML NEB SOLUTION NEB SCH (21:08)
[2021-04-07] MEDS: LORazepam 2 MG/ML VIAL IVP PRN (23:00)
[2021-04-08] VITALS (12 sets, daily range): BP systolic 131–179; BP diastolic 46–84
[2021-04-08] MEDS: MethylPREDNISolone SOD SUCC 125 MG/2 ML VIAL IVP SCH ×3 (00:19→13:00)
[2021-04-08] MEDS: HEPARIN SODIUM,PORCINE 5,000 UNITS/ML VIAL SQ SCH ×3 (00:19→17:12)
[2021-04-08] MEDS: LEVOTHYROXINE SODIUM 100 MCG TABLET PO SCH (06:23)
[2021-04-08] MEDS: BUDESONIDE 0.5 MG/2 ML NEB SOLUTION NEB SCH ×2 (07:41→22:12)
[2021-04-08] MEDS: ALBUTEROL SULFATE 2.5 MG/0.5 ML NEB SOLUTION NEB PRN ×2 (07:41→20:55)
[2021-04-08] MEDS: ACETYLCYSTEINE 20% 200 MG/ML 4 ML NEB SOLUTION NEB SCH ×2 (07:42→22:12)
[2021-04-08 08:53] LABS: BASOPHILS % (AUTO) 0.1 % (0.0-2.0); EOSINOPHILS % (AUTO) 0 % (1.0-6.0); HEMATOCRIT 38.3 % (41-53); HEMOGLOBIN 12.6 g/dL (13.5-17.5); LYMPHOCYTES # (AUTO) 0.3 K/uL (1.0-4.8); LYMPHOCYTES % (AUTO) 2.2 % (22.0-44.0); MEAN CORPUSCULAR HEMOGLOBIN 29.1 pg (26.0-34.0); MEAN CORPUSCULAR HGB CONC 32.8 G/dL (31.0-37.0); MEAN CORPUSCULAR VOLUME 89 fL (80-100); MONOCYTES # (AUTO) 0.6 K/uL (0.1-1.0); MONOCYTES % (AUTO) 4.3 % (2.0-9.0); NEUTROPHILS # (AUTO) 12.1 K/uL (1.8-7.7); PLATELET COUNT (AUTO) 125 K/uL (150-450); RED BLOOD CELL COUNT(AUTO) 4.32 MIL/uL (4.50-5.90); RED CELL DISTRIBUTION WIDTH 15.9 % (11.5-14.5)
[2021-04-08 08:55] LABS: NEUTROPHILS % (AUTO) 93.4 % (40.0-70.0)
[2021-04-08] MEDS: ETHYL ALCOHOL 62% ANTISEPTIC NASAL INHALANT 0.6 ML AMPUL NASAL SCH ×2 (09:00→20:20)
[2021-04-08] MEDS: SENNA/DOCUSATE SODIUM 8.6-50 MG TABLET PO SCH ×2 (09:00→20:20)
[2021-04-08 09:07] LABS: ALANINE AMINOTRANSFERASE 233 U/L (12-78); ALBUMIN 2.6 g/dL (3.4-5.0); ALKALINE PHOSPHATASE 54 U/L (46-116); ANION GAP 2 mmol/L (8-16); ASPARTATE AMINOTRANSFERASE 124 U/L (15-37); BILIRUBIN,TOTAL 0.9 mg/dL (0.1-1.0); CALCIUM, TOTAL 8.3 mg/dL (8.8-10.5); CARBON DIOXIDE 40 mmol/L (22-29); CHLORIDE 106 mmol/L (98-107); CREATININE 0.56 mg/dL (0.60-1.30); GLUCOSE,RANDOM 149 mg/dL (70-110); POTASSIUM 3.8 mmol/L (3.5-5.1); SODIUM SERUM 148 mmol/L (136-145); TOTAL PROTEIN, SERUM 6.3 g/dL (6.4-8.2); UREA NITROGEN, BLOOD 28 mg/dL (7-18)
[2021-04-08 09:11] LABS: GLOMERULAR FILTR. RATE CALC > 60 mL/min (>60)
[2021-04-08] MEDS: TIOTROPIUM BROMIDE 18 MCG/INH HANDIHALER [5] IH SCH (10:01)
[2021-04-08] MEDS: LevETIRAcetam 1,500 MG in DEXTROSE 5%-WATER 100 ML IV SCH ×2 (10:02→20:31)
[2021-04-08] MEDS: LORazepam 2 MG/ML VIAL IVP PRN (10:02)
[2021-04-08] MEDS: AZITHROMYCIN 500 MG/NS 250 ML IV SCH (10:58)
[2021-04-08] MEDS: OxyCODONE HCL/ACETAMINOPHEN 5-325 MG TABLET PO PRN ×2 (10:59→20:21)
[2021-04-08] MEDS: TAMSULOSIN HCL 0.4 MG CAPSULE PO SCH (11:02)
[2021-04-08] MEDS: ASPIRIN 81 MG CHEWABLE TABLET PO SCH (11:02)
[2021-04-08] MEDS: FAMOTIDINE 20 MG TABLET PO SCH ×2 (11:02→20:20)
[2021-04-08] MEDS: CefTRIAXone SODIUM 2 GM in DEXTROSE 5%-WATER 50 ML IV SCH (13:02)
[2021-04-08] MEDS: MethylPREDNISolone SOD SUCC 40 MG/ML VIAL IVP SCH (17:12)
[2021-04-08] MEDS: AmLODIPine BESYLATE 10 MG TABLET PO SCH (20:20)
[2021-04-08] MEDS: IPRATROPIUM BROMIDE 0.5 MG/2.5 ML NEB SOLUTION NEB PRN (20:55)
[2021-04-08] MEDS: MONTELUKAST SODIUM 10 MG TABLET PO SCH (21:15)
[2021-04-09] VITALS: BP 149/72
[2021-04-09] MEDS: MethylPREDNISolone SOD SUCC 40 MG/ML VIAL IVP SCH ×4 (00:18→17:05)
[2021-04-09] MEDS: HEPARIN SODIUM,PORCINE 5,000 UNITS/ML VIAL SQ SCH ×3 (00:19→17:01)
[2021-04-09 04:00] VITALS: BP 152/76
[2021-04-09] MEDS: OxyCODONE HCL/ACETAMINOPHEN 5-325 MG TABLET PO PRN ×3 (04:01→20:31)
[2021-04-09 05:21] LABS: BASOPHILS % (AUTO) 0.1 % (0.0-2.0); EOSINOPHILS % (AUTO) 0 % (1.0-6.0); HEMATOCRIT 37.7 % (41-53); HEMOGLOBIN 12.5 g/dL (13.5-17.5); LYMPHOCYTES # (AUTO) 0.4 K/uL (1.0-4.8); LYMPHOCYTES % (AUTO) 3.2 % (22.0-44.0); MEAN CORPUSCULAR HEMOGLOBIN 29.3 pg (26.0-34.0); MEAN CORPUSCULAR HGB CONC 33.2 G/dL (31.0-37.0); MEAN CORPUSCULAR VOLUME 88 fL (80-100); MONOCYTES # (AUTO) 0.5 K/uL (0.1-1.0); MONOCYTES % (AUTO) 4.4 % (2.0-9.0); NEUTROPHILS # (AUTO) 11.3 K/uL (1.8-7.7); PLATELET COUNT (AUTO) 115 K/uL (150-450); RED BLOOD CELL COUNT(AUTO) 4.27 MIL/uL (4.50-5.90); RED CELL DISTRIBUTION WIDTH 15.8 % (11.5-14.5)
[2021-04-09 05:23] LABS: NEUTROPHILS % (AUTO) 92.3 % (40.0-70.0)
[2021-04-09 05:34] LABS: ALANINE AMINOTRANSFERASE 358 U/L (12-78); ALBUMIN 2.3 g/dL (3.4-5.0); ALKALINE PHOSPHATASE 68 U/L (46-116); ANION GAP -4 mmol/L (8-16); ASPARTATE AMINOTRANSFERASE 202 U/L (15-37); BILIRUBIN,TOTAL 0.9 mg/dL (0.1-1.0); CALCIUM, TOTAL 8.2 mg/dL (8.8-10.5); CARBON DIOXIDE 40 mmol/L (22-29); CHLORIDE 107 mmol/L (98-107); CREATININE 0.59 mg/dL (0.60-1.30); GLUCOSE,RANDOM 230 mg/dL (70-110); POTASSIUM 3.3 mmol/L (3.5-5.1); SODIUM SERUM 143 mmol/L (136-145); TOTAL PROTEIN, SERUM 5.7 g/dL (6.4-8.2); UREA NITROGEN, BLOOD 31 mg/dL (7-18)
[2021-04-09 05:35] LABS: GLOMERULAR FILTR. RATE CALC > 60 mL/min (>60)
[2021-04-09] MEDS: POTASSIUM CHL 10 MEQ/WATER 50 ML IV PRN ×3 (05:58→10:35)
[2021-04-09] MEDS ORDERED: POTASSIUM CHLORIDE 20 MEQ ER TABLET PO PRN (06:00)
[2021-04-09] MEDS ORDERED: POTASSIUM CHL 10 MEQ/WATER 50 ML IV PRN (06:00)
[2021-04-09] MEDS: LEVOTHYROXINE SODIUM 100 MCG TABLET PO SCH (06:30)
[2021-04-09] MEDS: LORazepam 2 MG/ML VIAL IVP PRN (06:53)
[2021-04-09 08:00] VITALS: BP 172/69
[2021-04-09] MEDS: ETHYL ALCOHOL 62% ANTISEPTIC NASAL INHALANT 0.6 ML AMPUL NASAL SCH ×2 (08:21→20:39)
[2021-04-09] MEDS: IPRATROPIUM BROMIDE 0.5 MG/2.5 ML NEB SOLUTION NEB PRN (08:21)
[2021-04-09] MEDS: BUDESONIDE 0.5 MG/2 ML NEB SOLUTION NEB SCH ×2 (08:21→21:30)
[2021-04-09] MEDS: ASPIRIN 81 MG CHEWABLE TABLET PO SCH (08:21)
[2021-04-09] MEDS: ALBUTEROL SULFATE 2.5 MG/0.5 ML NEB SOLUTION NEB PRN (08:21)
[2021-04-09] MEDS: ACETYLCYSTEINE 20% 200 MG/ML 4 ML NEB SOLUTION NEB SCH ×2 (08:22→21:00)
[2021-04-09] MEDS: TIOTROPIUM BROMIDE 18 MCG/INH HANDIHALER [5] IH SCH (08:33)
[2021-04-09] MEDS: TAMSULOSIN HCL 0.4 MG CAPSULE PO SCH (08:34)
[2021-04-09] MEDS: LevETIRAcetam 1,500 MG in DEXTROSE 5%-WATER 100 ML IV SCH ×2 (08:34→23:00)
[2021-04-09] MEDS: FAMOTIDINE 20 MG TABLET PO SCH ×2 (08:34→20:31)
[2021-04-09] MEDS: SENNA/DOCUSATE SODIUM 8.6-50 MG TABLET PO SCH ×2 (10:33→21:00)
[2021-04-09] MEDS: AZITHROMYCIN 500 MG/NS 250 ML IV SCH (10:37)
[2021-04-09 12:00] VITALS: BP 156/71
[2021-04-09] MEDS: CefTRIAXone SODIUM 2 GM in DEXTROSE 5%-WATER 50 ML IV SCH (12:57)
[2021-04-09 16:00] VITALS: BP 151/70
[2021-04-09] MEDS: MONTELUKAST SODIUM 10 MG TABLET PO SCH (20:30)
[2021-04-09] MEDS: AmLODIPine BESYLATE 10 MG TABLET PO SCH (20:30)
[2021-04-09] MEDS ORDERED: SODIUM CHLORIDE 0.9% 100 ML ONE (22:39)
[2021-04-10] MEDS: LORazepam 2 MG/ML VIAL IVP PRN (00:08)
[2021-04-10] MEDS: HEPARIN SODIUM,PORCINE 5,000 UNITS/ML VIAL SQ SCH ×4 (00:09→23:50)
[2021-04-10] MEDS: MethylPREDNISolone SOD SUCC 40 MG/ML VIAL IVP SCH ×5 (00:15→23:50)
[2021-04-10 00:33] VITALS: BP 141/67
[2021-04-10 04:41] VITALS: BP 158/62
[2021-04-10] MEDS: LEVOTHYROXINE SODIUM 100 MCG TABLET PO SCH (06:23)
[2021-04-10 06:50] LABS: BASOPHILS % (AUTO) 0.2 % (0.0-2.0); EOSINOPHILS % (AUTO) 0 % (1.0-6.0); HEMATOCRIT 36.6 % (41-53); HEMOGLOBIN 12.2 g/dL (13.5-17.5); LYMPHOCYTES # (AUTO) 0.6 K/uL (1.0-4.8); LYMPHOCYTES % (AUTO) 4.6 % (22.0-44.0); MEAN CORPUSCULAR HEMOGLOBIN 29.4 pg (26.0-34.0); MEAN CORPUSCULAR HGB CONC 33.4 G/dL (31.0-37.0); MEAN CORPUSCULAR VOLUME 88 fL (80-100); MONOCYTES # (AUTO) 0.7 K/uL (0.1-1.0); MONOCYTES % (AUTO) 5.4 % (2.0-9.0); NEUTROPHILS # (AUTO) 12.1 K/uL (1.8-7.7); PLATELET COUNT (AUTO) 113 K/uL (150-450); RED BLOOD CELL COUNT(AUTO) 4.16 MIL/uL (4.50-5.90); RED CELL DISTRIBUTION WIDTH 15.3 % (11.5-14.5)
[2021-04-10 06:59] LABS: NEUTROPHILS % (AUTO) 89.8 % (40.0-70.0)
[2021-04-10 07:15] LABS: ALANINE AMINOTRANSFERASE 517 U/L (12-78); ALBUMIN 2.2 g/dL (3.4-5.0); ALKALINE PHOSPHATASE 71 U/L (46-116); ANION GAP -3 mmol/L (8-16); ASPARTATE AMINOTRANSFERASE 200 U/L (15-37); CARBON DIOXIDE 39 mmol/L (22-29); CHLORIDE 104 mmol/L (98-107); GLUCOSE,RANDOM 155 mg/dL (70-110); POTASSIUM 4.4 mmol/L (3.5-5.1); SODIUM SERUM 140 mmol/L (136-145); TOTAL PROTEIN, SERUM 5.5 g/dL (6.4-8.2); UREA NITROGEN, BLOOD 24 mg/dL (7-18)
[2021-04-10 07:21] LABS: GLOMERULAR FILTR. RATE CALC > 60 mL/min (>60)
[2021-04-10] MEDS ORDERED: 0.9% SODIUM CHLORIDE 5 ML NEB SOLUTION NEB ONE (08:32)
[2021-04-10] MEDS: BUDESONIDE 0.5 MG/2 ML NEB SOLUTION NEB SCH ×2 (08:34→20:02)
[2021-04-10] MEDS: IPRATROPIUM BROMIDE 0.5 MG/2.5 ML NEB SOLUTION NEB PRN ×2 (08:45→20:02)
[2021-04-10] MEDS: ALBUTEROL SULFATE 2.5 MG/0.5 ML NEB SOLUTION NEB PRN ×2 (08:45→20:02)
[2021-04-10] MEDS: ACETYLCYSTEINE 20% 200 MG/ML 4 ML NEB SOLUTION NEB SCH ×3 (08:45→20:02)
[2021-04-10] MEDS: ETHYL ALCOHOL 62% ANTISEPTIC NASAL INHALANT 0.6 ML AMPUL NASAL SCH ×2 (09:14→21:14)
[2021-04-10] MEDS: FAMOTIDINE 20 MG TABLET PO SCH ×2 (09:14→21:13)
[2021-04-10] MEDS: ASPIRIN 81 MG CHEWABLE TABLET PO SCH (09:14)
[2021-04-10] MEDS: SENNA/DOCUSATE SODIUM 8.6-50 MG TABLET PO SCH ×2 (09:15→21:13)
[2021-04-10] MEDS: TAMSULOSIN HCL 0.4 MG CAPSULE PO SCH (09:16)
[2021-04-10 09:26] VITALS: BP 141/73
[2021-04-10] MEDS: LevETIRAcetam 1,500 MG in DEXTROSE 5%-WATER 100 ML IV SCH ×2 (09:41→21:15)
[2021-04-10] MEDS ORDERED: SODIUM CHLORIDE 0.9% 250 ML IV ONE (09:42)
[2021-04-10] MEDS: AZITHROMYCIN 500 MG/NS 250 ML IV SCH (11:35)
[2021-04-10] MEDS: TIOTROPIUM BROMIDE 18 MCG/INH HANDIHALER [5] IH SCH (11:40)
[2021-04-10] MEDS: OxyCODONE HCL/ACETAMINOPHEN 5-325 MG TABLET PO PRN (11:42)
[2021-04-10 12:33] VITALS: BP 148/63
[2021-04-10] MEDS: CefTRIAXone SODIUM 2 GM in DEXTROSE 5%-WATER 50 ML IV SCH (12:42)
[2021-04-10 16:12] VITALS: BP 137/77
[2021-04-10] MEDS: ACETAMINOPHEN 325 MG TABLET PO PRN (17:25)
[2021-04-10 19:54] VITALS: BP 167/79
[2021-04-10] MEDS: AmLODIPine BESYLATE 10 MG TABLET PO SCH (21:13)
[2021-04-10] MEDS: MONTELUKAST SODIUM 10 MG TABLET PO SCH (21:14)
[2021-04-10] MEDS: HydrALAZINE HCL 20 MG/ML VIAL IVP PRN (21:14)
[2021-04-11] VITALS (7 sets, daily range): BP systolic 126–152; BP diastolic 54–78
[2021-04-11] MEDS: LORazepam 2 MG/ML VIAL IVP PRN ×3 (00:28→22:39)
[2021-04-11] MEDS: LEVOTHYROXINE SODIUM 100 MCG TABLET PO SCH (06:09)
[2021-04-11] MEDS: MethylPREDNISolone SOD SUCC 40 MG/ML VIAL IVP SCH ×3 (06:09→17:59)
[2021-04-11] MEDS: HEPARIN SODIUM,PORCINE 5,000 UNITS/ML VIAL SQ SCH ×2 (08:27→17:59)
[2021-04-11] MEDS: FAMOTIDINE 20 MG TABLET PO SCH ×2 (08:27→22:37)
[2021-04-11] MEDS: TAMSULOSIN HCL 0.4 MG CAPSULE PO SCH (08:27)
[2021-04-11] MEDS: ASPIRIN 81 MG CHEWABLE TABLET PO SCH (08:27)
[2021-04-11] MEDS: SENNA/DOCUSATE SODIUM 8.6-50 MG TABLET PO SCH ×2 (08:27→22:37)
[2021-04-11] MEDS: TIOTROPIUM BROMIDE 18 MCG/INH HANDIHALER [5] IH SCH (08:27)
[2021-04-11] MEDS: LevETIRAcetam 1,500 MG in DEXTROSE 5%-WATER 100 ML IV SCH ×2 (08:28→22:37)
[2021-04-11] MEDS: ETHYL ALCOHOL 62% ANTISEPTIC NASAL INHALANT 0.6 ML AMPUL NASAL SCH ×2 (08:28→22:37)
[2021-04-11] MEDS: ALBUTEROL SULFATE 2.5 MG/0.5 ML NEB SOLUTION NEB PRN ×2 (09:32→20:04)
[2021-04-11] MEDS: ACETYLCYSTEINE 20% 200 MG/ML 4 ML NEB SOLUTION NEB SCH ×2 (09:32→20:06)
[2021-04-11] MEDS: BUDESONIDE 0.5 MG/2 ML NEB SOLUTION NEB SCH ×2 (09:55→20:04)
[2021-04-11] MEDS: ACETAMINOPHEN 325 MG TABLET PO PRN ×2 (12:27→22:37)
[2021-04-11] MEDS: AmLODIPine BESYLATE 10 MG TABLET PO SCH (22:37)
[2021-04-11] MEDS: MONTELUKAST SODIUM 10 MG TABLET PO SCH (22:39)
[2021-04-12] MEDS: MethylPREDNISolone SOD SUCC 40 MG/ML VIAL IVP SCH ×4 (00:14→20:40)
[2021-04-12 03:58] VITALS: BP 138/74
[2021-04-12] MEDS: LEVOTHYROXINE SODIUM 100 MCG TABLET PO SCH (06:34)
[2021-04-12 07:27] VITALS: BP 143/69
[2021-04-12] MEDS: HEPARIN SODIUM,PORCINE 5,000 UNITS/ML VIAL SQ SCH ×4 (08:00→23:22)
[2021-04-12] MEDS: ETHYL ALCOHOL 62% ANTISEPTIC NASAL INHALANT 0.6 ML AMPUL NASAL SCH ×2 (08:12→20:40)
[2021-04-12] MEDS: TIOTROPIUM BROMIDE 18 MCG/INH HANDIHALER [5] IH SCH (08:12)
[2021-04-12] MEDS: LevETIRAcetam 1,500 MG in DEXTROSE 5%-WATER 100 ML IV SCH ×2 (08:12→20:39)
[2021-04-12] MEDS: ASPIRIN 81 MG CHEWABLE TABLET PO SCH (08:13)
[2021-04-12] MEDS: TAMSULOSIN HCL 0.4 MG CAPSULE PO SCH (08:13)
[2021-04-12] MEDS: SENNA/DOCUSATE SODIUM 8.6-50 MG TABLET PO SCH ×2 (08:13→20:41)
[2021-04-12] MEDS: FAMOTIDINE 20 MG TABLET PO SCH ×2 (08:13→20:40)
[2021-04-12] MEDS: ACETAMINOPHEN 325 MG TABLET PO PRN (08:15)
[2021-04-12] MEDS: LORazepam 2 MG/ML VIAL IVP PRN ×3 (08:19→20:43)
[2021-04-12] MEDS: BUDESONIDE 0.5 MG/2 ML NEB SOLUTION NEB SCH ×2 (08:30→20:34)
[2021-04-12] MEDS: ACETYLCYSTEINE 20% 200 MG/ML 4 ML NEB SOLUTION NEB SCH ×2 (08:38→20:34)
[2021-04-12] MEDS: IPRATROPIUM BROMIDE 0.5 MG/2.5 ML NEB SOLUTION NEB PRN (08:38)
[2021-04-12] MEDS: ALBUTEROL SULFATE 2.5 MG/0.5 ML NEB SOLUTION NEB PRN ×2 (08:38→20:34)
[2021-04-12 11:49] VITALS: BP 133/56
[2021-04-12 19:29] VITALS: BP 144/72
[2021-04-12] MEDS: MONTELUKAST SODIUM 10 MG TABLET PO SCH (20:39)
[2021-04-12] MEDS: AmLODIPine BESYLATE 10 MG TABLET PO SCH (20:42)
[2021-04-13 00:32] VITALS: BP 132/57
[2021-04-13 04:29] VITALS: BP 145/69
[2021-04-13] MEDS: LORazepam 2 MG/ML VIAL IVP PRN ×2 (05:15→17:30)
[2021-04-13] MEDS: LEVOTHYROXINE SODIUM 100 MCG TABLET PO SCH (06:08)
[2021-04-13 06:49] LABS: BASOPHILS % (AUTO) 0.1 % (0.0-2.0); EOSINOPHILS % (AUTO) 0 % (1.0-6.0); HEMATOCRIT 34.1 % (41-53); HEMOGLOBIN 11.2 g/dL (13.5-17.5); LYMPHOCYTES # (AUTO) 0.4 K/uL (1.0-4.8); LYMPHOCYTES % (AUTO) 2.5 % (22.0-44.0); MEAN CORPUSCULAR HEMOGLOBIN 28.9 pg (26.0-34.0); MEAN CORPUSCULAR HGB CONC 32.9 G/dL (31.0-37.0); MEAN CORPUSCULAR VOLUME 88 fL (80-100); MONOCYTES # (AUTO) 0.7 K/uL (0.1-1.0); MONOCYTES % (AUTO) 4.7 % (2.0-9.0); NEUTROPHILS # (AUTO) 14.4 K/uL (1.8-7.7); PLATELET COUNT (AUTO) 122 K/uL (150-450); RED BLOOD CELL COUNT(AUTO) 3.87 MIL/uL (4.50-5.90); RED CELL DISTRIBUTION WIDTH 15.2 % (11.5-14.5)
[2021-04-13 06:58] LABS: NEUTROPHILS % (AUTO) 92.7 % (40.0-70.0)
[2021-04-13 07:03] LABS: ALANINE AMINOTRANSFERASE 224 U/L (12-78); ALKALINE PHOSPHATASE 166 U/L (46-116); ANION GAP -3 mmol/L (8-16); ASPARTATE AMINOTRANSFERASE 38 U/L (15-37); BILIRUBIN,TOTAL 0.4 mg/dL (0.1-1.0); CALCIUM, TOTAL 8.1 mg/dL (8.8-10.5); CARBON DIOXIDE 38 mmol/L (22-29); CHLORIDE 97 mmol/L (98-107); CREATININE 0.51 mg/dL (0.60-1.30); GLUCOSE,RANDOM 192 mg/dL (70-110); POTASSIUM 4.2 mmol/L (3.5-5.1); SODIUM SERUM 132 mmol/L (136-145); TOTAL PROTEIN, SERUM 4.7 g/dL (6.4-8.2); UREA NITROGEN, BLOOD 24 mg/dL (7-18)
[2021-04-13 07:10] LABS: GLOMERULAR FILTR. RATE CALC > 60 mL/min (>60)
[2021-04-13 07:40] VITALS: BP 143/64
[2021-04-13] MEDS: TIOTROPIUM BROMIDE 18 MCG/INH HANDIHALER [5] IH SCH ×2 (09:00→09:03)
[2021-04-13] MEDS: LevETIRAcetam 1,500 MG in DEXTROSE 5%-WATER 100 ML IV SCH ×2 (09:03→20:33)
[2021-04-13] MEDS: ASPIRIN 81 MG CHEWABLE TABLET PO SCH (09:04)
[2021-04-13] MEDS: SENNA/DOCUSATE SODIUM 8.6-50 MG TABLET PO SCH ×2 (09:04→20:33)
[2021-04-13] MEDS: ETHYL ALCOHOL 62% ANTISEPTIC NASAL INHALANT 0.6 ML AMPUL NASAL SCH ×2 (09:04→20:33)
[2021-04-13] MEDS: MethylPREDNISolone SOD SUCC 40 MG/ML VIAL IVP SCH ×2 (09:04→20:33)
[2021-04-13] MEDS: FAMOTIDINE 20 MG TABLET PO SCH ×2 (09:04→20:33)
[2021-04-13] MEDS: TAMSULOSIN HCL 0.4 MG CAPSULE PO SCH (09:04)
[2021-04-13] MEDS: HEPARIN SODIUM,PORCINE 5,000 UNITS/ML VIAL SQ SCH ×3 (09:05→23:58)
[2021-04-13] MEDS: ACETYLCYSTEINE 20% 200 MG/ML 4 ML NEB SOLUTION NEB SCH ×2 (09:09→20:56)
[2021-04-13] MEDS: BUDESONIDE 0.5 MG/2 ML NEB SOLUTION NEB SCH ×2 (09:09→20:45)
[2021-04-13 11:16] VITALS: BP 146/68
[2021-04-13] MEDS: ACETAMINOPHEN 325 MG TABLET PO PRN (14:17)
[2021-04-13 16:05] VITALS: BP 144/59
[2021-04-13 20:15] VITALS: BP 158/64
[2021-04-13] MEDS: MONTELUKAST SODIUM 10 MG TABLET PO SCH (20:33)
[2021-04-13] MEDS: AmLODIPine BESYLATE 10 MG TABLET PO SCH (20:34)
[2021-04-13] MEDS: ALBUTEROL SULFATE 2.5 MG/0.5 ML NEB SOLUTION NEB PRN (20:56)
[2021-04-14 00:03] VITALS: BP 124/50
[2021-04-14 04:34] VITALS: BP 144/73
[2021-04-14] MEDS: LEVOTHYROXINE SODIUM 100 MCG TABLET PO SCH (06:32)
[2021-04-14] MEDS: ACETAMINOPHEN 325 MG TABLET PO PRN (07:01)
[2021-04-14 07:41] VITALS: BP 141/62
[2021-04-14] MEDS: ETHYL ALCOHOL 62% ANTISEPTIC NASAL INHALANT 0.6 ML AMPUL NASAL SCH ×2 (08:18→20:53)
[2021-04-14] MEDS: ASPIRIN 81 MG CHEWABLE TABLET PO SCH (08:18)
[2021-04-14] MEDS: SENNA/DOCUSATE SODIUM 8.6-50 MG TABLET PO SCH ×2 (08:18→20:53)
[2021-04-14] MEDS: MethylPREDNISolone SOD SUCC 40 MG/ML VIAL IVP SCH ×2 (08:18→20:53)
[2021-04-14] MEDS: LevETIRAcetam 1,500 MG in DEXTROSE 5%-WATER 100 ML IV SCH ×2 (08:18→20:53)
[2021-04-14] MEDS: FAMOTIDINE 20 MG TABLET PO SCH ×2 (08:19→20:53)
[2021-04-14] MEDS: LORazepam 2 MG/ML VIAL IVP PRN ×2 (08:19→17:54)
[2021-04-14] MEDS: TAMSULOSIN HCL 0.4 MG CAPSULE PO SCH (08:19)
[2021-04-14] MEDS: HEPARIN SODIUM,PORCINE 5,000 UNITS/ML VIAL SQ SCH ×4 (08:20→23:09)
[2021-04-14] MEDS: ACETYLCYSTEINE 20% 200 MG/ML 4 ML NEB SOLUTION NEB SCH ×2 (08:31→22:13)
[2021-04-14] MEDS: BUDESONIDE 0.5 MG/2 ML NEB SOLUTION NEB SCH ×2 (08:31→21:40)
[2021-04-14] MEDS: TIOTROPIUM BROMIDE 18 MCG/INH HANDIHALER [5] IH SCH (08:50)
[2021-04-14 11:31] VITALS: BP 143/76
[2021-04-14] MEDS: FUROSEMIDE 20 MG/2 ML VIAL IVP SCH (12:23)
[2021-04-14 15:37] VITALS: BP 150/66
[2021-04-14 20:38] VITALS: BP 146/55
[2021-04-14] MEDS: MONTELUKAST SODIUM 10 MG TABLET PO SCH (20:53)
[2021-04-14] MEDS: AmLODIPine BESYLATE 10 MG TABLET PO SCH (20:54)
[2021-04-14] MEDS: ALBUTEROL SULFATE 2.5 MG/0.5 ML NEB SOLUTION NEB PRN (21:40)
[2021-04-15] VITALS (7 sets, daily range): BP systolic 106–147; BP diastolic 45–68
[2021-04-15] MEDS: LORazepam 2 MG/ML VIAL IVP PRN ×3 (02:26→18:02)
[2021-04-15] MEDS: LEVOTHYROXINE SODIUM 100 MCG TABLET PO SCH (05:42)
[2021-04-15 06:47] LABS: EOSINOPHILS % (AUTO) 0 % (1.0-6.0); HEMOGLOBIN 11.8 g/dL (13.5-17.5); LYMPHOCYTES # (AUTO) 0.7 K/uL (1.0-4.8); LYMPHOCYTES % (AUTO) 4.4 % (22.0-44.0); MEAN CORPUSCULAR HEMOGLOBIN 28.7 pg (26.0-34.0); MEAN CORPUSCULAR HGB CONC 32.7 G/dL (31.0-37.0); MEAN CORPUSCULAR VOLUME 88 fL (80-100); MONOCYTES # (AUTO) 0.6 K/uL (0.1-1.0); MONOCYTES % (AUTO) 4.1 % (2.0-9.0); NEUTROPHILS # (AUTO) 13.9 K/uL (1.8-7.7); PLATELET COUNT (AUTO) 146 K/uL (150-450); RED CELL DISTRIBUTION WIDTH 15.3 % (11.5-14.5)
[2021-04-15 06:52] LABS: NEUTROPHILS % (AUTO) 91.5 % (40.0-70.0)
[2021-04-15 06:57] LABS: CALCIUM, TOTAL 8.5 mg/dL (8.8-10.5); CREATININE 0.44 mg/dL (0.60-1.30); GLUCOSE,RANDOM 157 mg/dL (70-110); UREA NITROGEN, BLOOD 20 mg/dL (7-18)
[2021-04-15 07:05] LABS: ANION GAP -4 mmol/L (8-16); CHLORIDE 101 mmol/L (98-107); POTASSIUM 4.6 mmol/L (3.5-5.1); SODIUM SERUM 140 mmol/L (136-145)
[2021-04-15 07:09] LABS: GLOMERULAR FILTR. RATE CALC > 60 mL/min (>60)
[2021-04-15 07:12] LABS: CARBON DIOXIDE 43 mmol/L (22-29)
[2021-04-15] MEDS: BUDESONIDE 0.5 MG/2 ML NEB SOLUTION NEB SCH ×2 (08:15→20:25)
[2021-04-15] MEDS: ACETYLCYSTEINE 20% 200 MG/ML 4 ML NEB SOLUTION NEB SCH ×2 (08:15→20:25)
[2021-04-15] MEDS: IPRATROPIUM BROMIDE 0.5 MG/2.5 ML NEB SOLUTION NEB PRN (08:15)
[2021-04-15] MEDS: ALBUTEROL SULFATE 2.5 MG/0.5 ML NEB SOLUTION NEB PRN (08:15)
[2021-04-15] MEDS: HEPARIN SODIUM,PORCINE 5,000 UNITS/ML VIAL SQ SCH ×2 (08:27→16:43)
[2021-04-15] MEDS: FUROSEMIDE 20 MG/2 ML VIAL IVP SCH (08:29)
[2021-04-15] MEDS: MethylPREDNISolone SOD SUCC 40 MG/ML VIAL IVP SCH ×2 (08:30→21:49)
[2021-04-15] MEDS: TAMSULOSIN HCL 0.4 MG CAPSULE PO SCH (08:31)
[2021-04-15] MEDS: ASPIRIN 81 MG CHEWABLE TABLET PO SCH (08:31)
[2021-04-15] MEDS: FAMOTIDINE 20 MG TABLET PO SCH ×2 (08:32→21:48)
[2021-04-15] MEDS: SENNA/DOCUSATE SODIUM 8.6-50 MG TABLET PO SCH ×2 (08:32→21:51)
[2021-04-15] MEDS: ETHYL ALCOHOL 62% ANTISEPTIC NASAL INHALANT 0.6 ML AMPUL NASAL SCH (08:36)
[2021-04-15] MEDS: TIOTROPIUM BROMIDE 18 MCG/INH HANDIHALER [5] IH SCH (09:00)
[2021-04-15] MEDS: LevETIRAcetam 1,500 MG in DEXTROSE 5%-WATER 100 ML IV SCH ×2 (09:55→21:49)
[2021-04-15] MEDS ORDERED: SODIUM CHLORIDE 0.9% 500 ML IV ONE (10:05)
[2021-04-15] MEDS: ACETAMINOPHEN 325 MG TABLET PO PRN ×2 (12:45→23:07)
[2021-04-15] MEDS ORDERED: DEXTROSE 50%-WATER 25 GM/50 ML SYRINGE IVP PRN (14:15)
[2021-04-15] MEDS: INSULIN REGULAR, HUMAN 100 UNITS/ML SQ PRN (17:54)
[2021-04-15] MEDS: MONTELUKAST SODIUM 10 MG TABLET PO SCH (21:48)
[2021-04-15] MEDS: AmLODIPine BESYLATE 10 MG TABLET PO SCH (21:48)
[2021-04-16] MEDS: HEPARIN SODIUM,PORCINE 5,000 UNITS/ML VIAL SQ SCH ×3 (00:43→17:37)
[2021-04-16] MEDS: LORazepam 2 MG/ML VIAL IVP PRN ×4 (00:44→17:38)
[2021-04-16 03:57] VITALS: BP 138/58
[2021-04-16] MEDS: LEVOTHYROXINE SODIUM 100 MCG TABLET PO SCH (06:18)
[2021-04-16] MEDS: ACETAMINOPHEN 325 MG TABLET PO PRN (06:18)
[2021-04-16] MEDS: INSULIN REGULAR, HUMAN 100 UNITS/ML SQ PRN ×3 (06:29→17:58)
[2021-04-16 07:58] VITALS: BP 141/53
[2021-04-16] MEDS: LevETIRAcetam 1,500 MG in DEXTROSE 5%-WATER 100 ML IV SCH ×2 (08:26→21:20)
[2021-04-16] MEDS: TAMSULOSIN HCL 0.4 MG CAPSULE PO SCH (08:28)
[2021-04-16] MEDS: FAMOTIDINE 20 MG TABLET PO SCH ×2 (08:28→21:20)
[2021-04-16] MEDS: ASPIRIN 81 MG CHEWABLE TABLET PO SCH (08:28)
[2021-04-16] MEDS: FUROSEMIDE 20 MG/2 ML VIAL IVP SCH (08:28)
[2021-04-16] MEDS: SENNA/DOCUSATE SODIUM 8.6-50 MG TABLET PO SCH ×2 (08:29→21:20)
[2021-04-16] MEDS: MethylPREDNISolone SOD SUCC 40 MG/ML VIAL IVP SCH ×2 (08:29→21:20)
[2021-04-16] MEDS: TIOTROPIUM BROMIDE 18 MCG/INH HANDIHALER [5] IH SCH (08:32)
[2021-04-16] MEDS: BUDESONIDE 0.5 MG/2 ML NEB SOLUTION NEB SCH ×2 (09:25→19:13)
[2021-04-16 11:15] VITALS: BP 122/54
[2021-04-16 15:37] VITALS: BP 121/48
[2021-04-16] MEDS: IPRATROPIUM BROMIDE 0.5 MG/2.5 ML NEB SOLUTION NEB PRN (19:11)
[2021-04-16] MEDS: ALBUTEROL SULFATE 2.5 MG/0.5 ML NEB SOLUTION NEB PRN (19:11)
[2021-04-16 20:04] VITALS: BP 133/58
[2021-04-16] MEDS: MONTELUKAST SODIUM 10 MG TABLET PO SCH (21:20)
[2021-04-16] MEDS: AmLODIPine BESYLATE 10 MG TABLET PO SCH (21:20)
[2021-04-17] MEDS: HEPARIN SODIUM,PORCINE 5,000 UNITS/ML VIAL SQ SCH ×3 (00:02→15:45)
[2021-04-17 00:17] VITALS: BP 128/56
[2021-04-17] MEDS: ACETAMINOPHEN 325 MG TABLET PO PRN (01:43)
[2021-04-17] MEDS: LORazepam 2 MG/ML VIAL IVP PRN ×4 (02:14→22:51)
[2021-04-17 04:18] VITALS: BP 109/58
[2021-04-17] MEDS: LEVOTHYROXINE SODIUM 100 MCG TABLET PO SCH (06:14)
[2021-04-17] MEDS: INSULIN REGULAR, HUMAN 100 UNITS/ML SQ PRN ×3 (06:15→17:46)
[2021-04-17 07:18] VITALS: BP 124/52
[2021-04-17] MEDS: BUDESONIDE 0.5 MG/2 ML NEB SOLUTION NEB SCH ×2 (08:31→20:35)
[2021-04-17] MEDS: SENNA/DOCUSATE SODIUM 8.6-50 MG TABLET PO SCH ×2 (09:24→21:00)
[2021-04-17] MEDS: FAMOTIDINE 20 MG TABLET PO SCH ×2 (09:25→21:00)
[2021-04-17] MEDS: TAMSULOSIN HCL 0.4 MG CAPSULE PO SCH (09:25)
[2021-04-17] MEDS: MethylPREDNISolone SOD SUCC 40 MG/ML VIAL IVP SCH ×2 (09:25→20:27)
[2021-04-17] MEDS: ASPIRIN 81 MG CHEWABLE TABLET PO SCH (09:25)
[2021-04-17] MEDS: TIOTROPIUM BROMIDE 18 MCG/INH HANDIHALER [5] IH SCH (09:26)
[2021-04-17] MEDS: LevETIRAcetam 1,500 MG in DEXTROSE 5%-WATER 100 ML IV SCH ×2 (09:29→20:28)
[2021-04-17] MEDS: FUROSEMIDE 20 MG/2 ML VIAL IVP SCH (09:29)
[2021-04-17 11:36] VITALS: BP 131/60
[2021-04-17] MEDS: ALBUTEROL SULFATE 2.5 MG/0.5 ML NEB SOLUTION NEB PRN ×2 (15:03→20:35)
[2021-04-17] MEDS: IPRATROPIUM BROMIDE 0.5 MG/2.5 ML NEB SOLUTION NEB PRN (15:04)
[2021-04-17 16:50] VITALS: BP 129/56
[2021-04-17 20:07] VITALS: BP_SYST 121; BP_SYST 150; BP_DIAS 58; BP_DIAS 88
[2021-04-17] MEDS: MONTELUKAST SODIUM 10 MG TABLET PO SCH (21:00)
[2021-04-17] MEDS: AmLODIPine BESYLATE 10 MG TABLET PO SCH (21:00)
[2021-04-18] VITALS (7 sets, daily range): BP systolic 115–153; BP diastolic 53–74
[2021-04-18] MEDS: HEPARIN SODIUM,PORCINE 5,000 UNITS/ML VIAL SQ SCH ×4 (01:13→23:25)
[2021-04-18] MEDS: LEVOTHYROXINE SODIUM 100 MCG TABLET PO SCH (05:46)
[2021-04-18] MEDS: BUDESONIDE 0.5 MG/2 ML NEB SOLUTION NEB SCH ×2 (07:49→19:40)
[2021-04-18] MEDS: LevETIRAcetam 1,500 MG in DEXTROSE 5%-WATER 100 ML IV SCH ×2 (08:58→21:24)
[2021-04-18] MEDS: TIOTROPIUM BROMIDE 18 MCG/INH HANDIHALER [5] IH SCH (08:58)
[2021-04-18] MEDS: MethylPREDNISolone SOD SUCC 40 MG/ML VIAL IVP SCH ×2 (08:59→21:24)
[2021-04-18] MEDS: FUROSEMIDE 20 MG/2 ML VIAL IVP SCH (08:59)
[2021-04-18] MEDS: FAMOTIDINE 20 MG TABLET PO SCH ×2 (09:00→21:24)
[2021-04-18] MEDS: SENNA/DOCUSATE SODIUM 8.6-50 MG TABLET PO SCH ×2 (09:00→21:25)
[2021-04-18] MEDS: TAMSULOSIN HCL 0.4 MG CAPSULE PO SCH (12:40)
[2021-04-18] MEDS: ASPIRIN 81 MG CHEWABLE TABLET PO SCH (12:40)
[2021-04-18] MEDS: ACETAMINOPHEN 325 MG TABLET PO PRN (12:40)
[2021-04-18] MEDS: LORazepam 2 MG/ML VIAL IVP PRN (15:30)
[2021-04-18 16:38] LABS: GLUCOMETER DEV NAME(LOC) 5S.1; GLUCOSE,POINT OF CARE 144 MG/DL (70-110)
[2021-04-18 16:39] LABS: GLUCOMETER DEV NAME(LOC) 5S.1; GLUCOSE,POINT OF CARE 137 MG/DL (70-110)
[2021-04-18 16:39] LABS: GLUCOMETER DEV NAME(LOC) 5S.1; GLUCOSE,POINT OF CARE 167 MG/DL (70-110)
[2021-04-18 16:39] LABS: GLUCOMETER DEV NAME(LOC) 5S.1; GLUCOSE,POINT OF CARE 175 MG/DL (70-110)
[2021-04-18 16:39] LABS: GLUCOMETER DEV NAME(LOC) 5S.1; GLUCOSE,POINT OF CARE 147 MG/DL (70-110)
[2021-04-18] MEDS: INSULIN REGULAR, HUMAN 100 UNITS/ML SQ PRN (17:22)
[2021-04-18 17:57] LABS: GLUCOMETER DEV NAME(LOC) 5N.3; GLUCOSE,POINT OF CARE 162 MG/DL (70-110)
[2021-04-18 17:57] LABS: GLUCOMETER DEV NAME(LOC) 5N.3; GLUCOSE,POINT OF CARE 171 MG/DL (70-110)
[2021-04-18 17:58] LABS: GLUCOMETER DEV NAME(LOC) 5N.3; GLUCOSE,POINT OF CARE 164 MG/DL (70-110)
[2021-04-18 17:58] LABS: GLUCOMETER DEV NAME(LOC) 5N.3; GLUCOSE,POINT OF CARE 145 MG/DL (70-110)
[2021-04-18 17:59] LABS: GLUCOMETER DEV NAME(LOC) 5N.3; GLUCOSE,POINT OF CARE 146 MG/DL (70-110)
[2021-04-18 17:59] LABS: GLUCOMETER DEV NAME(LOC) 5N.3; GLUCOSE,POINT OF CARE 137 MG/DL (70-110)
[2021-04-18 17:59] LABS: GLUCOMETER DEV NAME(LOC) 5N.3; GLUCOSE,POINT OF CARE 133 MG/DL (70-110)
[2021-04-18 19:56] LABS: GLUCOMETER DEV NAME(LOC) 5N.1C; GLUCOSE,POINT OF CARE 187 MG/DL (70-110)
[2021-04-18] MEDS: MONTELUKAST SODIUM 10 MG TABLET PO SCH (21:25)
[2021-04-18] MEDS: AmLODIPine BESYLATE 10 MG TABLET PO SCH (21:25)
[2021-04-19 04:41] VITALS: BP 118/58
[2021-04-19 06:31] LABS: GLUCOMETER DEV NAME(LOC) 5N.3; GLUCOSE,POINT OF CARE 136 MG/DL (70-110)
[2021-04-19] MEDS: LEVOTHYROXINE SODIUM 100 MCG TABLET PO SCH (06:35)
[2021-04-19 06:41] LABS: GLUCOMETER DEV NAME(LOC) 5N.1C; GLUCOSE,POINT OF CARE 148 MG/DL (70-110)
[2021-04-19 07:36] VITALS: BP 131/59
[2021-04-19 07:43] LABS: BASOPHILS % (AUTO) 0.2 % (0.0-2.0); EOSINOPHILS % (AUTO) 0 % (1.0-6.0); HEMATOCRIT 28.3 % (41-53); HEMOGLOBIN 9.5 g/dL (13.5-17.5); LYMPHOCYTES # (AUTO) 0.7 K/uL (1.0-4.8); MEAN CORPUSCULAR HEMOGLOBIN 29.5 pg (26.0-34.0); MEAN CORPUSCULAR HGB CONC 33.7 G/dL (31.0-37.0); MEAN CORPUSCULAR VOLUME 88 fL (80-100); MONOCYTES # (AUTO) 0.4 K/uL (0.1-1.0); MONOCYTES % (AUTO) 3.6 % (2.0-9.0); NEUTROPHILS # (AUTO) 11.2 K/uL (1.8-7.7); PLATELET COUNT (AUTO) 159 K/uL (150-450); RED BLOOD CELL COUNT(AUTO) 3.23 MIL/uL (4.50-5.90); RED CELL DISTRIBUTION WIDTH 14.9 % (11.5-14.5)
[2021-04-19 07:47] LABS: NEUTROPHILS % (AUTO) 90.2 % (40.0-70.0)
[2021-04-19 07:58] LABS: ALANINE AMINOTRANSFERASE 112 U/L (12-78); ALBUMIN 2.9 g/dL (3.4-5.0); ALKALINE PHOSPHATASE 121 U/L (46-116); ANION GAP 0 mmol/L (8-16); ASPARTATE AMINOTRANSFERASE 27 U/L (15-37); BILIRUBIN,TOTAL 0.7 mg/dL (0.1-1.0); CALCIUM, TOTAL 8.3 mg/dL (8.8-10.5); CARBON DIOXIDE 39 mmol/L (22-29); CHLORIDE 99 mmol/L (98-107); CREATININE 0.65 mg/dL (0.60-1.30); GLUCOSE,RANDOM 159 mg/dL (70-110); POTASSIUM 4.3 mmol/L (3.5-5.1); SODIUM SERUM 138 mmol/L (136-145); TOTAL PROTEIN, SERUM 5.9 g/dL (6.4-8.2); UREA NITROGEN, BLOOD 29 mg/dL (7-18)
[2021-04-19 08:00] LABS: GLOMERULAR FILTR. RATE CALC > 60 mL/min (>60)
[2021-04-19] MEDS: MethylPREDNISolone SOD SUCC 40 MG/ML VIAL IVP SCH (08:02)
[2021-04-19] MEDS: SENNA/DOCUSATE SODIUM 8.6-50 MG TABLET PO SCH ×2 (08:02→20:10)
[2021-04-19] MEDS: HEPARIN SODIUM,PORCINE 5,000 UNITS/ML VIAL SQ SCH ×3 (08:02→23:10)
[2021-04-19] MEDS: FAMOTIDINE 20 MG TABLET PO SCH ×2 (08:02→20:10)
[2021-04-19] MEDS: ASPIRIN 81 MG CHEWABLE TABLET PO SCH (08:02)
[2021-04-19] MEDS: FUROSEMIDE 20 MG/2 ML VIAL IVP SCH (08:03)
[2021-04-19] MEDS: TAMSULOSIN HCL 0.4 MG CAPSULE PO SCH (08:03)
[2021-04-19] MEDS ORDERED: SODIUM CHLORIDE 0.9% 250 ML IV ONE (08:09)
[2021-04-19] MEDS: LevETIRAcetam 1,500 MG in DEXTROSE 5%-WATER 100 ML IV SCH ×2 (08:27→20:51)
[2021-04-19] MEDS: LORazepam 2 MG/ML VIAL IVP PRN (08:28)
[2021-04-19] MEDS: TIOTROPIUM BROMIDE 18 MCG/INH HANDIHALER [5] IH SCH (09:00)
[2021-04-19] MEDS: BUDESONIDE 0.5 MG/2 ML NEB SOLUTION NEB SCH ×2 (09:49→19:44)
[2021-04-19 11:16] VITALS: BP 134/62
[2021-04-19] MEDS: INSULIN LISPRO 100 UNITS/ML SQ PRN ×2 (12:30→17:00)
[2021-04-19 15:54] VITALS: BP 147/68
[2021-04-19 17:47] LABS: GLUCOMETER DEV NAME(LOC) 5N.1C; GLUCOSE,POINT OF CARE 217 MG/DL (70-110)
[2021-04-19 20:00] VITALS: BP 130/71
[2021-04-19] MEDS: MONTELUKAST SODIUM 10 MG TABLET PO SCH (20:10)
[2021-04-19] MEDS: AmLODIPine BESYLATE 10 MG TABLET PO SCH (20:11)
[2021-04-19 20:32] LABS: GLUCOMETER DEV NAME(LOC) 5S.2B; GLUCOSE,POINT OF CARE 138 MG/DL (70-110)
[2021-04-19 20:32] LABS: GLUCOMETER DEV NAME(LOC) 5S.2B; GLUCOSE,POINT OF CARE 186 MG/DL (70-110)
[2021-04-19 20:33] LABS: GLUCOMETER DEV NAME(LOC) 5S.2B; GLUCOSE,POINT OF CARE 169 MG/DL (70-110)
[2021-04-19 23:22] VITALS: BP 134/55
[2021-04-20] MEDS: LORazepam 2 MG/ML VIAL IVP PRN ×4 (01:30→20:34)
[2021-04-20 03:36] VITALS: BP 117/68
[2021-04-20] MEDS: ACETAMINOPHEN 325 MG TABLET PO PRN ×2 (05:35→20:33)
[2021-04-20] MEDS: LEVOTHYROXINE SODIUM 100 MCG TABLET PO SCH (05:35)
[2021-04-20 06:21] LABS: GLUCOMETER DEV NAME(LOC) 5S.2B; GLUCOSE,POINT OF CARE 77 MG/DL (70-110)
[2021-04-20 07:21] LABS: GLUCOMETER DEV NAME(LOC) 5S.1; GLUCOSE,POINT OF CARE 209 MG/DL (70-110)
[2021-04-20 07:21] LABS: GLUCOMETER DEV NAME(LOC) 5S.1; GLUCOSE,POINT OF CARE 121 MG/DL (70-110)
[2021-04-20 07:38] VITALS: BP 110/50
[2021-04-20] MEDS: FUROSEMIDE 20 MG/2 ML VIAL IVP SCH (07:39)
[2021-04-20] MEDS: TAMSULOSIN HCL 0.4 MG CAPSULE PO SCH (07:39)
[2021-04-20] MEDS: SENNA/DOCUSATE SODIUM 8.6-50 MG TABLET PO SCH ×2 (07:39→20:33)
[2021-04-20] MEDS: ASPIRIN 81 MG CHEWABLE TABLET PO SCH (07:39)
[2021-04-20] MEDS: FAMOTIDINE 20 MG TABLET PO SCH ×2 (07:39→20:33)
[2021-04-20] MEDS: TIOTROPIUM BROMIDE 18 MCG/INH HANDIHALER [5] IH SCH (07:39)
[2021-04-20] MEDS: HEPARIN SODIUM,PORCINE 5,000 UNITS/ML VIAL SQ SCH ×3 (07:39→23:47)
[2021-04-20] MEDS: MethylPREDNISolone SOD SUCC 40 MG/ML VIAL IVP SCH (07:40)
[2021-04-20] MEDS: BUDESONIDE 0.5 MG/2 ML NEB SOLUTION NEB SCH ×2 (08:49→20:08)
[2021-04-20 09:55] LABS: BASOPHILS % (AUTO) 0.2 % (0.0-2.0); EOSINOPHILS % (AUTO) 0.2 % (1.0-6.0); HEMATOCRIT 22.2 % (41-53); HEMOGLOBIN 7.6 g/dL (13.5-17.5); LYMPHOCYTES # (AUTO) 0.9 K/uL (1.0-4.8); MEAN CORPUSCULAR HEMOGLOBIN 29.9 pg (26.0-34.0); MEAN CORPUSCULAR VOLUME 88 fL (80-100); MONOCYTES # (AUTO) 0.4 K/uL (0.1-1.0); MONOCYTES % (AUTO) 3.7 % (2.0-9.0); NEUTROPHILS # (AUTO) 10.1 K/uL (1.8-7.7); PLATELET COUNT (AUTO) 134 K/uL (150-450); RED BLOOD CELL COUNT(AUTO) 2.53 MIL/uL (4.50-5.90)
[2021-04-20 09:59] LABS: NEUTROPHILS % (AUTO) 87.9 % (40.0-70.0)
[2021-04-20] MEDS: LevETIRAcetam 1,500 MG in DEXTROSE 5%-WATER 100 ML IV SCH ×2 (10:09→20:33)
[2021-04-20 10:26] LABS: ALANINE AMINOTRANSFERASE 105 U/L (12-78); ALBUMIN 2.6 g/dL (3.4-5.0); ALKALINE PHOSPHATASE 99 U/L (46-116); ANION GAP 2 mmol/L (8-16); ASPARTATE AMINOTRANSFERASE 31 U/L (15-37); BILIRUBIN,TOTAL 0.8 mg/dL (0.1-1.0); CARBON DIOXIDE 38 mmol/L (22-29); CHLORIDE 100 mmol/L (98-107); CREATININE 0.58 mg/dL (0.60-1.30); GLUCOSE,RANDOM 89 mg/dL (70-110); POTASSIUM 3.8 mmol/L (3.5-5.1); SODIUM SERUM 140 mmol/L (136-145); TOTAL PROTEIN, SERUM 5.2 g/dL (6.4-8.2); UREA NITROGEN, BLOOD 26 mg/dL (7-18)
[2021-04-20 10:27] LABS: GLOMERULAR FILTR. RATE CALC > 60 mL/min (>60)
[2021-04-20 11:13] VITALS: BP 115/48
[2021-04-20 15:46] VITALS: BP 138/59
[2021-04-20] MEDS: INSULIN LISPRO 100 UNITS/ML SQ PRN (16:50)
[2021-04-20 19:29] VITALS: BP 122/54
[2021-04-20 20:10] LABS: GLUCOMETER DEV NAME(LOC) 5S.2B; GLUCOSE,POINT OF CARE 127 MG/DL (70-110)
[2021-04-20 20:11] LABS: GLUCOMETER DEV NAME(LOC) 5S.2B; GLUCOSE,POINT OF CARE 199 MG/DL (70-110)
[2021-04-20 20:21] LABS: GLUCOMETER DEV NAME(LOC) 5N.3; GLUCOSE,POINT OF CARE 124 MG/DL (70-110)
[2021-04-20] MEDS: AmLODIPine BESYLATE 10 MG TABLET PO SCH (20:33)
[2021-04-20] MEDS: MONTELUKAST SODIUM 10 MG TABLET PO SCH (20:33)
[2021-04-21 04:26] VITALS: BP 136/59
[2021-04-21] MEDS: LEVOTHYROXINE SODIUM 100 MCG TABLET PO SCH (05:31)
[2021-04-21] MEDS: LORazepam 2 MG/ML VIAL IVP PRN ×2 (05:32→23:49)
[2021-04-21 05:52] LABS: GLUCOMETER DEV NAME(LOC) 5S.1; GLUCOSE,POINT OF CARE 84 MG/DL (70-110)
[2021-04-21] MEDS: HEPARIN SODIUM,PORCINE 5,000 UNITS/ML VIAL SQ SCH ×3 (07:50→23:34)
[2021-04-21] MEDS: MethylPREDNISolone SOD SUCC 40 MG/ML VIAL IVP SCH (07:54)
[2021-04-21] MEDS: FUROSEMIDE 20 MG/2 ML VIAL IVP SCH (07:55)
[2021-04-21 08:09] VITALS: BP 119/52
[2021-04-21 08:15] LABS: BASOPHILS % (AUTO) 0.1 % (0.0-2.0); EOSINOPHILS % (AUTO) 0.5 % (1.0-6.0); HEMATOCRIT 21.3 % (41-53); HEMOGLOBIN 7.3 g/dL (13.5-17.5); LYMPHOCYTES # (AUTO) 1.1 K/uL (1.0-4.8); LYMPHOCYTES % (AUTO) 11.3 % (22.0-44.0); MEAN CORPUSCULAR HEMOGLOBIN 30.6 pg (26.0-34.0); MEAN CORPUSCULAR HGB CONC 34.3 G/dL (31.0-37.0); MEAN CORPUSCULAR VOLUME 89 fL (80-100); MONOCYTES # (AUTO) 0.5 K/uL (0.1-1.0); MONOCYTES % (AUTO) 5.2 % (2.0-9.0); NEUTROPHILS # (AUTO) 7.8 K/uL (1.8-7.7); NEUTROPHILS % (AUTO) 82.9 % (40.0-70.0); PLATELET COUNT (AUTO) 135 K/uL (150-450); RED CELL DISTRIBUTION WIDTH 15.1 % (11.5-14.5)
[2021-04-21 08:26] LABS: INR 0.9 (0.9-1.1); PROTHROMBIN TIME 10.1 SEC (9.4-11.6)
[2021-04-21 08:28] LABS: ALANINE AMINOTRANSFERASE 90 U/L (12-78); ALBUMIN 2.6 g/dL (3.4-5.0); ALKALINE PHOSPHATASE 88 U/L (46-116); ANION GAP -2 mmol/L (8-16); ASPARTATE AMINOTRANSFERASE 21 U/L (15-37); BILIRUBIN,TOTAL 0.9 mg/dL (0.1-1.0); CALCIUM, TOTAL 7.8 mg/dL (8.8-10.5); CARBON DIOXIDE 38 mmol/L (22-29); CHLORIDE 103 mmol/L (98-107); CREATININE 0.52 mg/dL (0.60-1.30); GLOMERULAR FILTR. RATE CALC > 60 mL/min (>60); GLUCOSE,RANDOM 77 mg/dL (70-110); POTASSIUM 3.9 mmol/L (3.5-5.1); SODIUM SERUM 139 mmol/L (136-145); TOTAL PROTEIN, SERUM 5.4 g/dL (6.4-8.2); UREA NITROGEN, BLOOD 21 mg/dL (7-18)
[2021-04-21] MEDS: TAMSULOSIN HCL 0.4 MG CAPSULE PO SCH (09:00)
[2021-04-21] MEDS: SENNA/DOCUSATE SODIUM 8.6-50 MG TABLET PO SCH ×2 (09:00→20:38)
[2021-04-21] MEDS: TIOTROPIUM BROMIDE 18 MCG/INH HANDIHALER [5] IH SCH (09:00)
[2021-04-21] MEDS: ASPIRIN 81 MG CHEWABLE TABLET PO SCH (09:00)
[2021-04-21] MEDS: FAMOTIDINE 20 MG TABLET PO SCH ×2 (09:00→20:39)
[2021-04-21] MEDS: LevETIRAcetam 1,500 MG in DEXTROSE 5%-WATER 100 ML IV SCH ×2 (09:06→20:40)
[2021-04-21] MEDS: BUDESONIDE 0.5 MG/2 ML NEB SOLUTION NEB SCH ×2 (09:54→21:10)
[2021-04-21 11:26] VITALS: BP 123/56
[2021-04-21 15:46] VITALS: BP 127/50
[2021-04-21] MEDS: INSULIN LISPRO 100 UNITS/ML SQ PRN ×2 (18:13→21:30)
[2021-04-21 19:35] VITALS: BP 132/53
[2021-04-21 20:06] LABS: GLUCOMETER DEV NAME(LOC) 5S.2B; GLUCOSE,POINT OF CARE 141 MG/DL (70-110)
[2021-04-21 20:06] LABS: GLUCOMETER DEV NAME(LOC) 5S.2B; GLUCOSE,POINT OF CARE 112 MG/DL (70-110)
[2021-04-21 20:18] LABS: BASOPHILS % (AUTO) 0.4 % (0.0-2.0); EOSINOPHILS % (AUTO) 0 % (1.0-6.0); HEMATOCRIT 22.6 % (41-53); HEMOGLOBIN 7.7 g/dL (13.5-17.5); LYMPHOCYTES # (AUTO) 0.7 K/uL (1.0-4.8); LYMPHOCYTES % (AUTO) 6.3 % (22.0-44.0); MEAN CORPUSCULAR HEMOGLOBIN 30.5 pg (26.0-34.0); MEAN CORPUSCULAR HGB CONC 34.2 G/dL (31.0-37.0); MEAN CORPUSCULAR VOLUME 89 fL (80-100); MONOCYTES # (AUTO) 0.4 K/uL (0.1-1.0); MONOCYTES % (AUTO) 3.8 % (2.0-9.0); NEUTROPHILS # (AUTO) 9.6 K/uL (1.8-7.7); PLATELET COUNT (AUTO) 151 K/uL (150-450); RED BLOOD CELL COUNT(AUTO) 2.53 MIL/uL (4.50-5.90); RED CELL DISTRIBUTION WIDTH 15.6 % (11.5-14.5)
[2021-04-21 20:30] LABS: NEUTROPHILS % (AUTO) 89.5 % (40.0-70.0)
[2021-04-21] MEDS: MONTELUKAST SODIUM 10 MG TABLET PO SCH (20:38)
[2021-04-21] MEDS: AmLODIPine BESYLATE 10 MG TABLET PO SCH (20:38)
[2021-04-21] MEDS: ACETAMINOPHEN 325 MG TABLET PO PRN (20:39)
[2021-04-21] MEDS: ALBUTEROL SULFATE 2.5 MG/0.5 ML NEB SOLUTION NEB PRN (21:10)
[2021-04-22] VITALS (15 sets, daily range): BP systolic 106–148; BP diastolic 45–68
[2021-04-22] MEDS: LEVOTHYROXINE SODIUM 100 MCG TABLET PO SCH (05:51)
[2021-04-22 06:11] LABS: GLUCOMETER DEV NAME(LOC) 5S.2B; GLUCOSE,POINT OF CARE 148 MG/DL (70-110)
[2021-04-22] MEDS: HEPARIN SODIUM,PORCINE 5,000 UNITS/ML VIAL SQ SCH ×4 (07:39→23:27)
[2021-04-22] MEDS: FUROSEMIDE 20 MG/2 ML VIAL IVP SCH (07:39)
[2021-04-22] MEDS: ACETAMINOPHEN 325 MG TABLET PO PRN (07:39)
[2021-04-22] MEDS: FAMOTIDINE 20 MG TABLET PO SCH ×2 (07:40→20:49)
[2021-04-22] MEDS: TIOTROPIUM BROMIDE 18 MCG/INH HANDIHALER [5] IH SCH (07:40)
[2021-04-22] MEDS: TAMSULOSIN HCL 0.4 MG CAPSULE PO SCH (07:40)
[2021-04-22] MEDS: SENNA/DOCUSATE SODIUM 8.6-50 MG TABLET PO SCH ×2 (07:40→20:49)
[2021-04-22] MEDS: ASPIRIN 81 MG CHEWABLE TABLET PO SCH (07:51)
[2021-04-22] MEDS: MethylPREDNISolone SOD SUCC 40 MG/ML VIAL IVP SCH (07:52)
[2021-04-22] MEDS: BUDESONIDE 0.5 MG/2 ML NEB SOLUTION NEB SCH ×2 (08:24→20:29)
[2021-04-22 08:50] LABS: BASOPHILS % (AUTO) 0.1 % (0.0-2.0); EOSINOPHILS % (AUTO) 0.6 % (1.0-6.0); LYMPHOCYTES # (AUTO) 1.1 K/uL (1.0-4.8); LYMPHOCYTES % (AUTO) 12.1 % (22.0-44.0); MEAN CORPUSCULAR HEMOGLOBIN 30.3 pg (26.0-34.0); MEAN CORPUSCULAR HGB CONC 33.6 G/dL (31.0-37.0); MEAN CORPUSCULAR VOLUME 90 fL (80-100); MONOCYTES # (AUTO) 0.5 K/uL (0.1-1.0); NEUTROPHILS # (AUTO) 7.6 K/uL (1.8-7.7); NEUTROPHILS % (AUTO) 82.2 % (40.0-70.0); PLATELET COUNT (AUTO) 144 K/uL (150-450); RED BLOOD CELL COUNT(AUTO) 2.27 MIL/uL (4.50-5.90); RED CELL DISTRIBUTION WIDTH 15.3 % (11.5-14.5)
[2021-04-22 08:51] LABS: ALANINE AMINOTRANSFERASE 78 U/L (12-78); ALBUMIN 2.6 g/dL (3.4-5.0); ALKALINE PHOSPHATASE 82 U/L (46-116); ANION GAP 5 mmol/L (8-16); ASPARTATE AMINOTRANSFERASE 20 U/L (15-37); CARBON DIOXIDE 37 mmol/L (22-29); CHLORIDE 102 mmol/L (98-107); CREATININE 0.55 mg/dL (0.60-1.30); GLUCOSE,RANDOM 72 mg/dL (70-110); POTASSIUM 3.9 mmol/L (3.5-5.1); SODIUM SERUM 144 mmol/L (136-145); TOTAL PROTEIN, SERUM 5.5 g/dL (6.4-8.2); UREA NITROGEN, BLOOD 22 mg/dL (7-18)
[2021-04-22 08:54] LABS: HEMOGLOBIN 6.9 g/dL (13.5-17.5)
[2021-04-22 08:55] LABS: GLOMERULAR FILTR. RATE CALC > 60 mL/min (>60); HEMATOCRIT 20.5 % (41-53)
[2021-04-22] MEDS: LevETIRAcetam 1,500 MG in DEXTROSE 5%-WATER 100 ML IV SCH ×2 (09:54→21:09)
[2021-04-22] MEDS: INSULIN LISPRO 100 UNITS/ML SQ PRN ×2 (11:41→17:34)
[2021-04-22 18:22] LABS: GLUCOMETER DEV NAME(LOC) 5N.1C; GLUCOSE,POINT OF CARE 207 MG/DL (70-110)
[2021-04-22 18:22] LABS: GLUCOMETER DEV NAME(LOC) 5N.1C; GLUCOSE,POINT OF CARE 75 MG/DL (70-110)
[2021-04-22] MEDS: ALBUTEROL SULFATE 2.5 MG/0.5 ML NEB SOLUTION NEB PRN (20:29)
[2021-04-22] MEDS: AmLODIPine BESYLATE 10 MG TABLET PO SCH (20:49)
[2021-04-22] MEDS: MONTELUKAST SODIUM 10 MG TABLET PO SCH (20:49)
[2021-04-22] MEDS: LORazepam 2 MG/ML VIAL IVP PRN (23:01)
[2021-04-23] MEDS: ACETAMINOPHEN 325 MG TABLET PO PRN ×3 (03:07→23:26)
[2021-04-23 03:35] VITALS: BP 136/56
[2021-04-23] MEDS: LEVOTHYROXINE SODIUM 100 MCG TABLET PO SCH (06:12)
[2021-04-23 07:29] LABS: ALANINE AMINOTRANSFERASE 66 U/L (12-78); ALBUMIN 2.7 g/dL (3.4-5.0); ALKALINE PHOSPHATASE 90 U/L (46-116); ANION GAP 4 mmol/L (8-16); ASPARTATE AMINOTRANSFERASE 20 U/L (15-37); BILIRUBIN,TOTAL 1.8 mg/dL (0.1-1.0); CALCIUM, TOTAL 8.4 mg/dL (8.8-10.5); CARBON DIOXIDE 34 mmol/L (22-29); CHLORIDE 103 mmol/L (98-107); CREATININE 0.53 mg/dL (0.60-1.30); GLUCOSE,RANDOM 79 mg/dL (70-110); POTASSIUM 4.2 mmol/L (3.5-5.1); SODIUM SERUM 141 mmol/L (136-145); TOTAL PROTEIN, SERUM 5.6 g/dL (6.4-8.2); UREA NITROGEN, BLOOD 21 mg/dL (7-18)
[2021-04-23 07:30] LABS: GLOMERULAR FILTR. RATE CALC > 60 mL/min (>60)
[2021-04-23 07:31] LABS: HEMATOCRIT 27.6 % (41-53); HEMOGLOBIN 9.5 g/dL (13.5-17.5); MEAN CORPUSCULAR HEMOGLOBIN 31.3 pg (26.0-34.0); MEAN CORPUSCULAR HGB CONC 34.4 G/dL (31.0-37.0); MEAN CORPUSCULAR VOLUME 91 fL (80-100); PLATELET COUNT (AUTO) 142 K/uL (150-450); RED BLOOD CELL COUNT(AUTO) 3.03 MIL/uL (4.50-5.90); RED CELL DISTRIBUTION WIDTH 14.6 % (11.5-14.5)
[2021-04-23 07:43] VITALS: BP 146/76
[2021-04-23] MEDS: MethylPREDNISolone SOD SUCC 40 MG/ML VIAL IVP SCH (07:47)
[2021-04-23] MEDS: TAMSULOSIN HCL 0.4 MG CAPSULE PO SCH (07:47)
[2021-04-23] MEDS: SENNA/DOCUSATE SODIUM 8.6-50 MG TABLET PO SCH ×2 (07:47→20:40)
[2021-04-23] MEDS: FUROSEMIDE 20 MG/2 ML VIAL IVP SCH (07:47)
[2021-04-23] MEDS: FAMOTIDINE 20 MG TABLET PO SCH ×2 (07:48→20:39)
[2021-04-23] MEDS: TIOTROPIUM BROMIDE 18 MCG/INH HANDIHALER [5] IH SCH (07:48)
[2021-04-23] MEDS: HEPARIN SODIUM,PORCINE 5,000 UNITS/ML VIAL SQ SCH ×3 (07:58→23:07)
[2021-04-23] MEDS: ASPIRIN 81 MG CHEWABLE TABLET PO SCH (07:58)
[2021-04-23 08:43] LABS: BAND NEUTROPHILS % (MANUAL) 3 % (0-5); LYMPHOCYTES % (MANUAL) 17 % (22-44); MONOCYTES % (MANUAL) 7 % (2-9); SEGMENTED NEUTROPHILS % 73 % (40-70)
[2021-04-23] MEDS: BUDESONIDE 0.5 MG/2 ML NEB SOLUTION NEB SCH ×2 (09:51→19:46)
[2021-04-23] MEDS: LevETIRAcetam 1,500 MG in DEXTROSE 5%-WATER 100 ML IV SCH ×2 (10:14→20:40)
[2021-04-23 10:27] LABS: GLUCOMETER DEV NAME(LOC) 5S.2B; GLUCOSE,POINT OF CARE 71 MG/DL (70-110)
[2021-04-23 10:27] LABS: GLUCOMETER DEV NAME(LOC) 5S.2B; GLUCOSE,POINT OF CARE 152 MG/DL (70-110)
[2021-04-23 10:27] LABS: GLUCOMETER DEV NAME(LOC) 5S.2B; GLUCOSE,POINT OF CARE 127 MG/DL (70-110)
[2021-04-23 11:24] VITALS: BP 145/89
[2021-04-23] MEDS: INSULIN LISPRO 100 UNITS/ML SQ PRN ×2 (11:40→17:29)
[2021-04-23 15:33] VITALS: BP 116/53
[2021-04-23] MEDS ORDERED: KETOROLAC TROMETHAMINE 15 MG/ML VIAL IVP ONE (18:00)
[2021-04-23 19:16] VITALS: BP 139/72
[2021-04-23] MEDS: AmLODIPine BESYLATE 10 MG TABLET PO SCH (20:39)
[2021-04-23] MEDS: MONTELUKAST SODIUM 10 MG TABLET PO SCH (20:40)
[2021-04-23 23:33] VITALS: BP 133/53
[2021-04-24 00:46] LABS: GLUCOMETER DEV NAME(LOC) 5S.2B; GLUCOSE,POINT OF CARE 101 MG/DL (70-110)
[2021-04-24 00:46] LABS: GLUCOMETER DEV NAME(LOC) 5S.2B; GLUCOSE,POINT OF CARE 177 MG/DL (70-110)
[2021-04-24 03:16] VITALS: BP 146/61
[2021-04-24] MEDS: LEVOTHYROXINE SODIUM 100 MCG TABLET PO SCH (05:42)
[2021-04-24 07:12] VITALS: BP 140/62
[2021-04-24] MEDS: SENNA/DOCUSATE SODIUM 8.6-50 MG TABLET PO SCH (08:08)
[2021-04-24] MEDS: ASPIRIN 81 MG CHEWABLE TABLET PO SCH (08:08)
[2021-04-24] MEDS: FAMOTIDINE 20 MG TABLET PO SCH (08:08)
[2021-04-24] MEDS: MethylPREDNISolone SOD SUCC 40 MG/ML VIAL IVP SCH (08:08)
[2021-04-24] MEDS: TAMSULOSIN HCL 0.4 MG CAPSULE PO SCH (08:08)
[2021-04-24] MEDS: HEPARIN SODIUM,PORCINE 5,000 UNITS/ML VIAL SQ SCH ×2 (08:10→15:49)
[2021-04-24] MEDS: TIOTROPIUM BROMIDE 18 MCG/INH HANDIHALER [5] IH SCH (08:11)
[2021-04-24] MEDS: FUROSEMIDE 20 MG/2 ML VIAL IVP SCH (08:13)
[2021-04-24] MEDS: LevETIRAcetam 1,500 MG in DEXTROSE 5%-WATER 100 ML IV SCH (08:15)
[2021-04-24 08:27] LABS: BASOPHILS % (AUTO) 0.4 % (0.0-2.0); EOSINOPHILS % (AUTO) 2.1 % (1.0-6.0); HEMATOCRIT 29.4 % (41-53); HEMOGLOBIN 10.4 g/dL (13.5-17.5); LYMPHOCYTES # (AUTO) 1.1 K/uL (1.0-4.8); MEAN CORPUSCULAR HGB CONC 35.3 G/dL (31.0-37.0); MEAN CORPUSCULAR VOLUME 91 fL (80-100); MONOCYTES # (AUTO) 0.5 K/uL (0.1-1.0); MONOCYTES % (AUTO) 6.2 % (2.0-9.0); NEUTROPHILS # (AUTO) 6.3 K/uL (1.8-7.7); NEUTROPHILS % (AUTO) 77.3 % (40.0-70.0); PLATELET COUNT (AUTO) 157 K/uL (150-450); RED BLOOD CELL COUNT(AUTO) 3.23 MIL/uL (4.50-5.90); RED CELL DISTRIBUTION WIDTH 15.9 % (11.5-14.5)
[2021-04-24 08:40] LABS: ALANINE AMINOTRANSFERASE 64 U/L (12-78); ALBUMIN 2.8 g/dL (3.4-5.0); ALKALINE PHOSPHATASE 92 U/L (46-116); ASPARTATE AMINOTRANSFERASE 19 U/L (15-37); BILIRUBIN,TOTAL 1.2 mg/dL (0.1-1.0); CALCIUM, TOTAL 8.5 mg/dL (8.8-10.5); CARBON DIOXIDE 34 mmol/L (22-29); CHLORIDE 102 mmol/L (98-107); CREATININE 0.69 mg/dL (0.60-1.30); GLOMERULAR FILTR. RATE CALC > 60 mL/min (>60); GLUCOSE,RANDOM 84 mg/dL (70-110); TOTAL PROTEIN, SERUM 5.9 g/dL (6.4-8.2); UREA NITROGEN, BLOOD 28 mg/dL (7-18)
[2021-04-24] MEDS ORDERED: SODIUM CHLORIDE 0.9% 250 ML IV ONE (08:41)
[2021-04-24 08:43] LABS: ANION GAP 3 mmol/L (8-16); POTASSIUM 4.2 mmol/L (3.5-5.1); SODIUM SERUM 139 mmol/L (136-145)
[2021-04-24 08:46] LABS: GLUCOMETER DEV NAME(LOC) 5N.1C; GLUCOSE,POINT OF CARE 76 MG/DL (70-110)
[2021-04-24] MEDS: BUDESONIDE 0.5 MG/2 ML NEB SOLUTION NEB SCH (09:29)
[2021-04-24 11:40] LABS: GLUCOMETER DEV NAME(LOC) 5S.2B; GLUCOSE,POINT OF CARE 129 MG/DL (70-110)
[2021-04-24 12:00] VITALS: BP 138/66
[2021-04-24] MEDS ORDERED: MONT-35 PO (13:01)
[2021-04-24] MEDS ORDERED: ASPI81 PO (13:01)
[2021-04-24] MEDS ORDERED: AMLO-258 PO (13:01)
[2021-04-24] MEDS ORDERED: FURO20 PO (13:01)
[2021-04-24] MEDS ORDERED: BENZ-70 PO (13:01)
[2021-04-24] MEDS ORDERED: BUDE0.5A NEB (13:01)
[2021-04-24] MEDS: ACETAMINOPHEN 325 MG TABLET PO PRN (14:07)
[2021-04-24 15:01] VITALS: BP 124/57
[2021-04-26 19:31] LABS: GLUCOMETER DEV NAME(LOC) 5N.3; GLUCOSE,POINT OF CARE 181 MG/DL (70-110)
== END 2021-04-24 18:00 | disposition home health service (06) | DRG 208 ==
LOC: EMS 20:07 → ICU 04-01 05:12 → 5S 04-09 18:45
PROVIDERS: ADMIT Internal Medicine; ATTEND Internal Medicine
PROC: 5A09357 Assistance with Respiratory Ventilation, Less than 24 Consecutive Hours, Continuous Positive Airway Pressure (ICD-10-PCS; 2021-04-01)
PROC: 0BH17EZ Insertion of Endotracheal Airway into Trachea, Via Natural or Artificial Opening (ICD-10-PCS; principal; 2021-04-02)
PROC: 5A1945Z Respiratory Ventilation, 24-96 Consecutive Hours (ICD-10-PCS; 2021-04-02)
PROC: 5A09357 Assistance with Respiratory Ventilation, Less than 24 Consecutive Hours, Continuous Positive Airway Pressure (ICD-10-PCS; 2021-04-02)
PROC: 5A1935Z Respiratory Ventilation, Less than 24 Consecutive Hours (ICD-10-PCS; 2021-04-05)
PROC: 5A09357 Assistance with Respiratory Ventilation, Less than 24 Consecutive Hours, Continuous Positive Airway Pressure (ICD-10-PCS; 2021-04-06)
PROC: 5A1935Z Respiratory Ventilation, Less than 24 Consecutive Hours (ICD-10-PCS; 2021-04-06)
PROC: 5A09357 Assistance with Respiratory Ventilation, Less than 24 Consecutive Hours, Continuous Positive Airway Pressure (ICD-10-PCS; 2021-04-07)
PROC: 5A09357 Assistance with Respiratory Ventilation, Less than 24 Consecutive Hours, Continuous Positive Airway Pressure (ICD-10-PCS; 2021-04-08)
PROC: 5A09357 Assistance with Respiratory Ventilation, Less than 24 Consecutive Hours, Continuous Positive Airway Pressure (ICD-10-PCS; 2021-04-09)
PROC: 5A09357 Assistance with Respiratory Ventilation, Less than 24 Consecutive Hours, Continuous Positive Airway Pressure (ICD-10-PCS; 2021-04-10)
PROC: 5A09357 Assistance with Respiratory Ventilation, Less than 24 Consecutive Hours, Continuous Positive Airway Pressure (ICD-10-PCS; 2021-04-11)
PROC: 5A09357 Assistance with Respiratory Ventilation, Less than 24 Consecutive Hours, Continuous Positive Airway Pressure (ICD-10-PCS; 2021-04-12)
PROC: 5A09357 Assistance with Respiratory Ventilation, Less than 24 Consecutive Hours, Continuous Positive Airway Pressure (ICD-10-PCS; 2021-04-13)
PROC: 5A09357 Assistance with Respiratory Ventilation, Less than 24 Consecutive Hours, Continuous Positive Airway Pressure (ICD-10-PCS; 2021-04-14)
PROC: 5A09357 Assistance with Respiratory Ventilation, Less than 24 Consecutive Hours, Continuous Positive Airway Pressure (ICD-10-PCS; 2021-04-18)
PROC: 5A09357 Assistance with Respiratory Ventilation, Less than 24 Consecutive Hours, Continuous Positive Airway Pressure (ICD-10-PCS; 2021-04-19)
PROC: 5A09357 Assistance with Respiratory Ventilation, Less than 24 Consecutive Hours, Continuous Positive Airway Pressure (ICD-10-PCS; 2021-04-20)
PROC: 5A09357 Assistance with Respiratory Ventilation, Less than 24 Consecutive Hours, Continuous Positive Airway Pressure (ICD-10-PCS; 2021-04-21)
PROC: 05HY33Z Insertion of Infusion Device into Upper Vein, Percutaneous Approach (ICD-10-PCS; 2021-04-22)
PROC: B54NZZA Ultrasonography of Left Upper Extremity Veins, Guidance (ICD-10-PCS; 2021-04-22)
PROC: 30233N1 Transfusion of Nonautologous Red Blood Cells into Peripheral Vein, Percutaneous Approach (ICD-10-PCS; 2021-04-22)
PROC: 5A09357 Assistance with Respiratory Ventilation, Less than 24 Consecutive Hours, Continuous Positive Airway Pressure (ICD-10-PCS; 2021-04-22)
PROC: 5A09357 Assistance with Respiratory Ventilation, Less than 24 Consecutive Hours, Continuous Positive Airway Pressure (ICD-10-PCS; 2021-04-24)
DX: J96.21 Acute and chronic respiratory failure with hypoxia (principal); J18.9 Pneumonia, unspecified organism; G93.41 Metabolic encephalopathy; J44.1 Chronic obstructive pulmonary disease with (acute) exacerbation; E87.0 Hyperosmolality and hypernatremia; J44.0 Chronic obstructive pulmonary disease with (acute) lower respiratory infection; I69.354 Hemiplegia and hemiparesis following cerebral infarction affecting left non-dominant side; J96.22 Acute and chronic respiratory failure with hypercapnia; I10 Essential (primary) hypertension; E03.9 Hypothyroidism, unspecified; G40.909 Epilepsy, unspecified, not intractable, without status epilepticus; D69.6 Thrombocytopenia, unspecified; N40.0 Benign prostatic hyperplasia without lower urinary tract symptoms; E78.00 Pure hypercholesterolemia, unspecified; F32.A Depression, unspecified; R13.10 Dysphagia, unspecified; R62.7 Adult failure to thrive; Z68.24 Body mass index [BMI] 24.0-24.9, adult; Z88.8 Allergy status to other drugs, medicaments and biological substances; Z88.0 Allergy status to penicillin; Z99.81 Dependence on supplemental oxygen; Z98.2 Presence of cerebrospinal fluid drainage device
CPT/HCPCS: 36245; 36569; 36600; 70450; 71045; 74230; 76937; 80048; 80053; 81001; 81002; 82805; 82962; 83605; 83690; 83735; 83880; 84100; 84132; 84443; 84484; 85025; 85610; 85730; 86850; 86900; 86901; 86923; 87040; 87070; 87081; 87086; 87804; 92526; 92610; 92611; 93005; 93971; 94002; 94003; 94640; 94644; 94660; 94799; 97110; 97162; 97167; 97530; 99285; G0378; J0360; J0456; J0461; J0696; J0712; J1265; J1644; J1885; J1940; J2060; J2704; J2920; J2930; J3480; J3490; J7030; J7040; J7050; J7060; P9016; Q9967; 36415-L1; 36415-TC; J7611; J7613